=== PATIENT | male | born 1980 | race Caucasian/White ===

== ENCOUNTER 2019-04-28 01:52 | Outpatient (CLI) | payer BC, SELFPAY ==
--- NOTE | 2019-04-28 09:37 | DI.MRI_ITS ---
EXAM: MR THORACIC SPINE WO CLINICAL HISTORY: BACK PAIN WITH RADICULOPATHY, M54.16, UPPER BACK PAIN, M54.9. TECHNIQUE: Multiplanar multisequence MRI was performed. COMPARISON: No exams were available for comparison FINDINGS: There is normal signal in the spinal cord. No central spinal canal or neural foraminal stenosis is s een in the thoracic spine. There is a small central disc herniation at T12-L1. No nerve root compre ssion or central spinal canal stenosis results. There is normal marrow signal. No occult fracture i s appreciated. IMPRESSION: 1. Small central disc herniation at T12-L1. No central spinal canal or nerve root compression result s. 2. No central spinal canal or neural foraminal stenosis is seen in the thoracic spine.
== END 2019-04-28 02:12 ==
PROVIDERS: PCP Nurse Practitioner; Visit Provider Nurse Practitioner
DX: M54.16 Radiculopathy, lumbar region (principal); M54.6 Pain in thoracic spine; M51.25 Other intervertebral disc displacement, thoracolumbar region
CPT/HCPCS: 72146

== ENCOUNTER 2019-05-27 12:00 | Outpatient (CLI) | payer BC, SELFPAY ==
--- NOTE | 2019-05-27 06:00 | DI.RAD_ITS ---
EXAM: XR PAIN CLINIC THORACIC SP 2V CLINICAL HISTORY: Thoracic Epidural Steroid Injection. TECHNIQUE: Fluoroscopy was provided for the referring physician for guidance with performing injecti on procedure. COMPARISON: No exams were available for comparison FINDINGS: Please see procedure note for details. Fluoro Time: 44.3 seconds
[2019-05-27 12:06] VITALS: BP 121/79; PULSE 83; RESP 16; TEMP 36.5; O2SAT 96
[2019-05-27] MEDS: Omnipaque 240 MG/ML 50 ML BTL IJ (13:11)
[2019-05-27] MEDS: Dexamethasone Sod. Phos./Pres-Free 10 MG/ML VIAL IJ (13:14)
--- NOTE | 2019-05-27 13:18 | PDOC.PAIN_ITS ---
Pain Clinic Procedure Note Procedure Note Procedure Note: THORACIC INTERLAMINAR EPIDURAL STERIOID INJECTION PROCEDURE NOTE COMFORT ESQUIVEL has been referred to the [facility] for a lumbar epidural steroid injection by Melva Chi APRN. Pre-operative diagnosis: thoracic herniated disc Post-operative diagnosis: same as above The patient complains of UPPER BACK PAIN, MINIMAL RADIATION.. COMFORT was greeted by the nurse who verified patients name and . The patient was then taken to the fluoroscopy suite. COMFROT was interviewed and the medical record reviewed. There were no medical, pharmacologic, radiographic, or other structural contraindications to attempting fluoroscopically guided lumbar epidural steroid injection. Risks and potential side effects, as well as potential benefits of the procedure were reviewed with Mr Esquivel. He voiced concerns were addressed. After I was assured that informed consent was obtained, the patient consent form was signed. Standard time-out procedure was performed. patient reported a localized area of tenderness and pain over his upper back, which was marked and x-ray image taken, this correlated with T5-6 level. Ms Ariella's clinic visit note, there appears to be small disc herniation at T2-3. Given patient's maximal pain correlated with approximately T5-6, we discussed approaching the T3-4 level in hopes of epidural spread. COMFORT was placed in the prone position on the fluoroscopy table and automated blood pressure cuff and pulse oximeter applied. The skin entry point for entering/approaching the T3-4 epidural space for the lumbar epidural steroid injection was marked. Following thorough chlorhexadine preparation of the skin and draping and 1% lidocaine infiltration of the skin entry point and subcutaneous tissues, an 18 gauge Touhy needle was placed and advanced under fluoroscopic guidance and with loss of resistance technique into the T3-4 epidural space. Needle tip placement and depth were aided and confirmed by fluoroscopy. There was no paresthesia or return of blood or CSF through the needle. 2 cc's of Omnipaque 240 was injected (48 cc's was wasted) with clear epidural spread confirmed with fluoroscopy. 15 mg of preservative-free Dexamethasone (10 mg/cc) was injected (5 mg was wasted). This was followed by 1 cc of preservative-free normal saline to flush the steroid out of the needle. There was not any unusual discomfort expressed by KIRIT Kuhn (48 cc of Omnipaque and 5 mg of Dexamethasone was wasted) COMFORT's vital signs were stable throughout the procedure and were as recorded in nursing records. Follow up plans and appointments were discussed with COMFORT . The patient is set to follow up with Melva Krishnan APRN. Post procedure instruction was given as documented in nursing records and having met discharge criteria he was d ischarged from the [facility]. Comments: If this procedure is successful in helping with pain and improving his function, it can be completed a maximum of 3 times every 12 months. I personally performed this entire procedure. Daniel Tolliver MD ABPN-subspecialty board certification in Pain Medicine Attending Physician - Pain Management
[2019-05-27 13:22] VITALS: BP 125/77; PULSE 74; RESP 17; O2SAT 98
== END 2019-05-27 12:20 ==
PROVIDERS: PCP Nurse Practitioner; Visit Provider Internal Medicine
DX: M51.24 Other intervertebral disc displacement, thoracic region (principal)
CPT/HCPCS: 64490; 72070; Q9967

== ENCOUNTER 2020-04-08 11:24 | Outpatient (REF) | payer BC, SELFPAY ==
[2020-04-10 04:33] LABS: Patient Race White; SARS-CoV-2 RNA Undetected (Undetected); SARS-CoV-2 Specimen Source Nasal
== END 2020-04-08 11:44 ==
LOC: NCHCN 11:24
PROVIDERS: PCP Nurse Practitioner; Visit Provider Nurse Practitioner Family
DX: R05 Cough (principal)
CPT/HCPCS: U0003

== ENCOUNTER 2020-08-10 09:34 | Emergency (ER) | payer OTHER, SELFPAY ==
[2020-08-10 09:41] VITALS: BP 139/98; PULSE 89; TEMP 36.7; O2SAT 99
--- NOTE | 2020-08-10 10:00 | DI.CT_ITS ---
EXAM: CT THORACIC LUMBAR SPINE WO CLINICAL HISTORY: Fall, Hx of compression Fx, R/O acute fracture. TECHNIQUE: Imaging Protocol: Axial computed tomography images with coronal and sagittal reformatted images were created and reviewed. COMPARISON: CR CHEST 2 VIEWS PA,LAT from 09/24/2017 MR MR THORACIC SPINE WO from 04/28/2019 FINDINGS: Lumbar spine: There is a nondisplaced fracture of the right L1 transverse process. No other fracture s or subluxations are seen in the lumbar spine. Mild degenerative changes are seen in the lumbar spi ne. There is no spondylolysis or spondylolisthesis. The visualized sacroiliac joints are unremarkab le. The soft tissues are grossly unremarkable. Thoracic spine: No acute fracture or subluxation. Mild degenerative changes are seen in the thoracic spine. There is normal alignment. The visualized lungs are clear. IMPRESSION: 1. Nondisplaced fracture of the right L1 transverse process. 2. No acute fracture or subluxation in the thoracic spine. 3. Results of this exam have been verbally communicated with provider. RADIATION DOSE DELIVERED: Total DLP DATA REPOSITORY: All CT scans at this facility are submitted to the National Radiology Data Registry (NRDR) Dose Index Registry (DIR) with the [employer] (A[employer]). RADIATION OPTIMIZATION: All CT scans at this facility use at least one of these dose optimization te chniques: automated exposure control; mA and/or kV adjustment per patient size (includes targeted exa ms where dose is matched to clinical indication); or iterative reconstruction.
[2020-08-10 10:02] LABS: Bilirubin Negative (Negative); Blood Negative (Negative); Clarity Clear (Clear); Glucose Negative (Negative); Ketones Negative (Negative); Leukocyte Esterase Negative (Negative); Nitrite Negative (Negative); Urobilinogen 0.2 EU/dL (Up TO 0.2)
--- NOTE | 2020-08-10 12:02 | ED.GENADUL_ITS ---
Discharge Plan Disposition Patient Disposition: HOME Condition: Stable Discharge Details Clinical Impression: Fx lumbar vertebra-closed Primary Care Provider: Whitney Benites ED Provider: Loretta Britton Home Meds and New Rx's Prescriptions: No Action clindamycin phosphate 1 % Solution 1 applic TOPICAL DAILY PRNRF: 0 cyclobenzaprine 10 mg tablet 10 mg PO HS PRNRF: 0 acetaminophen [Tylenol Extra Strength] 500 mg Tablet 500 mg PO Q6H PRNRF: 0 Discharge Instructions Instructions: Transverse Process Fracture (ED) Additional Instructions: Follow up with primary care provider in 3-5 days. Return to ED sooner if any worsening or concerns. Increase oral fluids. Please take Tylenol or Ibuprofen with food every 4-6 hours as needed for pain and swelling. Take medications as directed. Alternate ice and heat, no significant bending. Return for any red flag symptoms such as loss of bowel or bladder control, inability to urinate or have a bowel movement, increasing numbness tingling in your lower extremities, weakness in your lower extremities or any concerns. Stand Alone Forms: Work Release Referrals: Whitney Benites [Primary Care Provider] - Discharge Data Discharge Date/Time-TO BE ENTERED AT DEPARTURE: 08/10/20 12:39 Medical Decision Making 40-year-old male presents to the ER with chief complaint of right paraspinous lumbar tenderness status post slip and fall which occurred last night. Slipped on stairs, landing onto his back. He is complaining of right paraspinous tenderness, no midline tenderness, crepitus or step-off palpated. He denies any loss of bowel or bladder control, he denies any numbness tingling in his lower extremities. He does report mild numbness extending just across his posterior lumbar area. He does have a past medical history of spine problems. He took a Flexeril last night and ibuprofen which did little to nothing to help with symptoms. EXAM: CT THORACIC LUMBAR SPINE WO CLINICAL HISTORY: Fall, Hx of compression Fx, R/O acute fracture. TECHNIQUE: Imaging Protocol: Axial computed tomography images with coronal and sagittal reformatted images were created and reviewed. COMPARISON: CR CHEST 2 VIEWS PA,LAT from 09/24/2017 MR MR THORACIC SPINE WO from 04/28/2019 FINDINGS: Lumbar spine: There is a nondisplaced fracture of the right L1 transverse process. No other fractures or subluxations are seen in the lumbar spine. Mild degenerative changes are seen in the lumbar spine. There is no spondylolysis or spondylolisthesis. The visualized sacroiliac joints are unremarkable. The soft tissues are grossly unremarkable. Thoracic spine: No acute fracture or subluxation. Mild degenerative changes are seen in the thoracic spine. There is normal alignment. The visualized lungs are clear. IMPRESSION: 1. Nondisplaced fracture of the right L1 transverse process. 2. No acute fracture or subluxation in the thoracic spine. 3. Results of this exam have been verbally communicated with provider. Urinalysis is within normal limits no leukocytosis or hematuria noted. Discussed results with patient he verbalized understanding. Discussed home care and strict return instructions. He has tried lidocaine patches in the past with little to no relief. We will attempt tramadol to go I discussed alternating ice and heat, I did discuss activities at home, and red flags to return for. Soren webb was ambulatory without difficulty here in department and upon discharge. HPI General Mode of arrival: ambulatory . Date/Time Provider Initiated Documentation: 08/10/20 09:46 . Limitations to Documentation: no limitations . Information obtained by: patient . HPI Narrative: 40-year-old male presents to the ER with chief complaint of right paraspinous lumbar tenderness status post slip and fall which occurred last night. Slipped on stairs, landing onto his back. He is complaining of right paraspinous tenderness, no midline tenderness, crepitus or step-off palpated. He denies any loss of bowel or bladder control, he denies any numbness tingling in his lower extremities. He does report mild numbness extending just across his posterior lumbar area. He does have a past medical history of spine problems. He took a Flexeril last night and ibuprofen which did little to nothing to help with symptoms. Related Data Home Medications Medication Instructions Recorded Confirmed clindamycin phosphate 1 applic TOPICAL DAILY PRN 05/07/19 08/10/20 acetaminophen [Tylenol Extra 500 mg PO Q6H PRN 08/10/20 08/10/20 Strength] cyclobenzaprine 10 mg PO HS PRN 08/10/20 08/10/20 Allergies Allergy/AdvReac Type Severity Reaction Status Date / Time penicillin V Allergy Severe Unverified 08/10/20 09:47 Penicillins Allergy Severe Hives Unverified 08/10/20 09:47 General Stated Complaint: Nk/Back Pain TRES: 3 Review of Systems Narrative: Constitutional: Negative for weight loss, alert and oriented, well groomed, normal body habitus, appears comfortable. HEENT: Denies trauma, headaches, blurry vision, nasal discharge, sore throat, trouble swallowing. Chest: Denies chest pain, palpitations, irregular rhythm, hypertension. Respiratory: Denies Shortness of breath, cough, hemoptysis. GI: Denies abdominal pain, nausea, vomiting, diarrhea, constipation. : Denies dysuria, hematuria, flank pain, rectal bleeding. Musculoskeletal: Complaining of lower lumbar spine tenderness, mild numbness extending across the back of his back. No loss of bowel or bladder control, no numbness tingling. Neuro: Denies dizziness, blurry vision, weakness, syncope, headache or facial numbness. Hematologic: Denies easy bruising, intolerance to heat or cold, hair loss. All systems reviewed & are unremarkable except as noted in HPI and below PFSH Medical History Acne Back pain with radiculopathy Depression Family history of thoracic aortic aneurysm Left knee pain Mitral regurgitation Nonsustained ventricular tachycardia Paresthesia Radiculopathy affecting upper extremity Tricuspid regurgitation Upper back pain Surgical History H/O arthroscopic knee surgery 2xleft, 1xright H/O wisdom tooth extraction Social History Smoking/Tobacco Use Status: Current every day Tobacco Type: smokeless tobacco Smokeless tobacco user: chewing tobacco Smoking risk assessment performed?: Yes Alcohol Intake: current Alcohol Intake frequency: 3 or more drinks per day Drug use: Never Substance use type: does not use Household members: spouse and children Housing: house Number of Children: 2 current occupation: law enforcement What is your relationship status?: Panel score (0-1 are the most socially isolated patients): 1 What type of physical activity do you participate in: none Do you feel safe at home: Yes Do you feel safe in your relationship?: Yes Exam Narrative Exam Narrative: Constitutional: Alert and oriented x3. Appears stated age. Normal body habitus. Head: Normocephalic, no trauma. Eyes: Pupils PERRLA, Red reflex noted, EOM's intact. Eyelids symmetrical without lesions, discharge, or swelling. ENT: Bilateral TM's WNL, External ear normal to inspection, no mastoid TTP, swelling, or erythema, Nasal turbinates WNL, no nasal discharge. Normal dentition, Posterior pharynx WNL, no exudate. Chest: RRR, Normal S1, S2, distal pulses intact. Resp: Lungs clear to auscultation bilaterally, no wheezes, rales, or rhonchi. Musculoskeletal: Normal gait, 5/5 strength to all four extremities. No midline tenderness with palpation, no crepitus no step-off noted to the L-spine, he does have some midline T-spine tenderness with palpation he states that it that is at his baseline. Does have some L midline L-spine tenderness and paraspinous tenderness with palpation. Sensation is equal bilateral lower extremities. Intact dorsiflexion and pedal flexion bilateral lower extremities. Skin: No suspicious rashes or lesions. Capillary refill less than 2 sec. Neurologic: Cranial nerves II-XII intact. Alert and oriented x 3. DTR's intact. Hematologic/Lymphatic: No ecchymosis, no lymphadenopathy. Course Vital Signs Vital signs: Vital Signs Temperature 36.7 C 08/10/20 09:41 Pulse 89 08/10/20 09:41 Blood Pressure 139/98 H 08/10/20 09:41 Pulse Oximetry 99 08/10/20 09:41 Temperature 36.7 C 08/10/20 09:41 Temperature Source Temporal Artery Scan 08/10/20 09:41 Pulse 89 08/10/20 09:41 Respiratory Effort Non-Labored 08/10/20 09:44 Blood Pressure 139/98 H 08/10/20 09:41 Blood Pressure Position Sitting 08/10/20 09:41 Pulse Oximetry 99 08/10/20 09:41 Oxygen Delivery Method Room Air 08/10/20 09:41 Oxygen Flow Rate 0 08/10/20 09:41 Pain Level 3 08/10/20 09:53 Lab/Test Results Lab/Test Results: Laboratory Tests Range/Units 08/10/20 09:59 Urine Color (Yellow) Yellow Urine Clarity (Clear) Clear Urine pH (5-8) 7.0 Ur Specific [place] (1.005-1.025) 1.020 Urine Protein (Negative) mg/dL Negative Urine Ketones (Negative) mg/dL Negative Urine Blood (Negative) Negative Urine Nitrite (Negative) Negative Urine Bilirubin (Negative) Negative Urine Urobilinogen (Up TO 0.2) EU/dL 0.2 Ur Leukocyte Esterase (Negative) Negative Urine Glucose (Negative) mg/dL Negative
--- NOTE | 2020-09-24 16:18 | W.ED.FU ---
Date of service: 09/24/20 Time of Service: 16:19 Follow Up Plan: Addendum noted to visit of August 10, 2020: Time of onset of symptoms and fall was 0700 am and not last night as previously stated.
== END 2020-08-10 12:39 | disposition home or self-care (01) ==
PROVIDERS: Emergency Provider Registered Nurse Emergency; PCP Nurse Practitioner
DX: S32.018A Other fracture of first lumbar vertebra, initial encounter for closed fracture (principal); W10.8XXA Fall (on) (from) other stairs and steps, initial encounter
CPT/HCPCS: 99284; 72128; 72131; 81003

== ENCOUNTER 2020-09-15 14:19 | Outpatient (CLI) | payer OTHER, BC, SELFPAY ==
--- NOTE | 2020-09-15 06:00 | DI.RAD_ITS ---
EXAM: XR PAIN CLINIC LUMBAR SP 2V CLINICAL HISTORY: Dx: Lumbar Spondylosis TECHNIQUE: 2D and realtime digital imaging was performed. CONTRAST MATERIAL: None. COMPARISON: No exams were available for comparison FINDINGS: Fluoroscopy was provided for Dr. AQUINO during the performance of pain management therapy. Images reveal placement of right-sided needles at L3 and L4 L5 levels. Please refer to the procedure report for c omplete details. Fluoro time: 25.5 seconds Cumulative dose: 4.5 sign rib mGy IMPRESSION:
[2020-09-15 14:56] VITALS: BP 138/94; PULSE 90; RESP 17; TEMP 37; O2SAT 97
--- NOTE | 2020-09-15 15:37 | PDOC.PAIN ---
Pain Clinic Procedure Note Procedure Note Procedure Note: Lumbar/Sacral Medial Branch Blocks COMFORT DUDLEY has been referred to the [facility] for lumbar/sacral medial branch blocks. pre-operative diagnosis: lumbar spondylosis Patient was interviewed and the medical record reviewed. There were no medical, pharmacologic, radiographic or other structural contraindications to attempting fluoroscopically guided local anesthetic lumbar/sacral medial branch blocks. Risks and expected side effects as well as potential benefit of the procedure were reviewed and voiced concerns addressed. The printed consent form was signed and witnessed. Standard time-out procedure was performed. Patient was placed in the prone position on the fluoroscopy table and automated blood pressure cuff and pulse oximeter applied. The skin entry points for approaching the anatomic target points of the segmental medial branches of right L3, L4, L5-DR were identified with anfluoroscopy and marked. Following thorough Chlorhexadine preparation of the skin and draping and 1% lidocaine infiltration of the skin entry points and subcutaneous tissues, a 25 gauge spinal needle was placed under fluoroscopic guidance down on to the target point for each respective segmental medial branch.Position was confirmed in A/P, oblique and lateral views with 0.25ml of omnipaque 240. Coult be this method .5ml 0.5% Bupivacaine was injected. Vital signs were stable throughout the procedure and were as recorded in the docflowsheet by the nursing staff. Follow up plans and appointments were discussed and was instructed to keep careful note of how the usual pain was modified by these injections. Specifically was asked to keep a pain diary for the next 24 hours using a numeric pain scale of 0-10 and report these results at the follow-up visit. Post procedure instruction was given as documented in the nursing documentation and having met discharge criteria. Patient was discharged from the [facility]. Based on the medial branches blocked today, if the patient has adequate relief and we are able to proceed to radiofrequency ablation, the treatment should result in the denervation of the right L4/5 and L5/S1 facets . We would expect to denervate a total of 2 facets during the radiofrequency ablation. COMMENTS: patient tolerated procedure well. I performed the entire procedure. Daniel Tolliver MD Pain Management CC: Whitney Benites
[2020-09-15 15:45] VITALS: BP 129/91; PULSE 92; RESP 18; O2SAT 100
[2020-09-15] MEDS: Bupivacaine 0.5% Pres-Free 10 ML VIAL IJ (15:50)
[2020-09-15] MEDS: Omnipaque 240 MG/ML 50 ML BTL IJ (15:50)
== END 2020-09-15 14:20 | disposition home or self-care (01) ==
LOC: PC 14:20
PROVIDERS: PCP Nurse Practitioner; Visit Provider Internal Medicine
DX: M47.816 Spondylosis without myelopathy or radiculopathy, lumbar region (principal)
CPT/HCPCS: 64493; 64494; 72100; Q9967

== ENCOUNTER 2020-11-23 08:29 | Outpatient (CLI) | payer OTHER, SELFPAY ==
[2020-11-23 08:34] VITALS: BP 133/90; PULSE 76; RESP 18; TEMP 36.5; O2SAT 98
--- NOTE | 2020-11-23 08:39 | PDOC.PAIN_ITS ---
Pain Clinic Procedure Note Procedure Note Procedure Note: Lumbar Epidural Steroid Injection Procedure Note Pre-operative diagnosis: thoracolumbar disc herniation Post-operative diagnosis: same as above COMMENTS: patient has a history of L1 transverse process fracture (11/07/2020) which has now healed. He has been evaluated by Ms Melva Krishnan APRN in clinic for a number of issues including axial back pain, failed to improve with diagnostic lumbar medial branch nerve block, previous history of upper thoracic pain which received good response from T3-4 TRES in the past. MRI L spine shows a small central disc herniation at T12-L1 without evidence of central canal or foraminal stenosis. patient is referred for a trial of T12-L1 TRES. COMFORT DUDLEY has been referred to the [facility] for lumbar epidural steroid injection. The patient was greeted by the nurse who verified patients name and . Patient was then taken to the fluoroscopy suite. The patient was interviewed and the medial record reviewed. There were no medical, pharmacologic, radiographic, or other structural contraindications to attempting fluoroscopically guided lumbar epidural steroid injection. Risks and expected side effects as well as potential benefits of the procedure were rev iewed and voiced concerns expressed. The patient consent form was signed and witnessed. Standard patient time-out procedure was performed. The patient was placed in the prone position on the fluoroscopy table and automated blood pressure cuff and pulse oximeter applied. The skin entry point for entering/approaching the epidural space by T12-L1 and marked. Following thorough chlorhexadine preparation of the skin and draping and 1% lidocaine infiltration of the skin entry point and subcutaneous tissues, a 18 gauge Touhy needle was placed under fluoroscopic guidance and with loss of resistance technique into the epidural space. Needle tip placement and depth were aided and confirmed by fluoroscopy. There was no paresthesia or return of blood or CSF t hrough the needle. 1 cc's of Omnipaque 240 was injected with clear epidural spread confirmed with fluoroscopy. 10mg Dexamethasone was injected. There was not any unusual discomfort expressed by COMFORT DUDLEY. Patient's vital signs were stable throughout the procedure and were as recorded in nursing records. Follow up plans and appointments were discussed with patient. Post procedure instruction was given as documented in nursing records and having met discharge criteria and was discharged from the [facility]. COMMENTS: If this procedure is helpful, it can be completed up to 3 times per 12 months. pre-procedure pain level is 3 out of 10 at rest, worse with prolonged sitting and bending, which pain increases to 6 out of 10, post procedure pain level is reported as 1/10. Daniel Tolliver MD Pain Management
[2020-11-23 09:12] VITALS: BP 143/93; PULSE 70; RESP 12; O2SAT 98
--- NOTE | 2020-11-23 09:16 | DI.RAD_ITS ---
Exam(s) XR PAIN CLINIC LUMBAR SP 2V EXAM: XR PAIN CLINIC LUMBAR SP 2V CLINICAL HISTORY: Dx: Lumbar Radiculopathy. TECHNIQUE: Fluoroscopy was provided for the referring physician for guidance with performing injecti on procedure. COMPARISON: No exams were available for comparison FINDINGS: Please see procedure note for details. RADIATION DOSE DELIVERED: gloria Lawson=7.37 mGy
[2020-11-23] MEDS: Dexamethasone Sod. Phos./Pres-Free 10 MG/ML VIAL IJ (09:25)
[2020-11-23] MEDS: Omnipaque 240 MG/ML 50 ML BTL IJ (09:26)
== END 2020-11-23 08:30 | disposition home or self-care (01) ==
LOC: PC 08:30
PROVIDERS: PCP Nurse Practitioner; Visit Provider Internal Medicine
DX: M51.25 Other intervertebral disc displacement, thoracolumbar region (principal)
CPT/HCPCS: 62323; 72100; Q9967

== ENCOUNTER 2021-03-08 11:35 | Outpatient (CLI) | payer BC, SELFPAY ==
--- NOTE | 2021-03-08 06:00 | DI.RAD_ITS ---
Exam(s) XR PAIN CLINIC LUMBAR SP 2V EXAM: XR PAIN CLINIC LUMBAR SP 2V CLINICAL HISTORY: Dx: Lumbar Radiculopathy. TECHNIQUE: Fluoroscopy was provided for the referring physician for guidance with performing injecti on procedure. COMPARISON: No exams were available for comparison FINDINGS: Please see procedure note for details. Fluoro time 19.2 seconds RADIATION DOSE DELIVERED: gloria Lawson=4.71 mGy
[2021-03-08 11:50] VITALS: BP 128/91; PULSE 81; RESP 18; TEMP 36.8; O2SAT 99
[2021-03-08 12:25] VITALS: BP 141/100; PULSE 76; RESP 12; O2SAT 94
--- NOTE | 2021-03-08 12:25 | PDOC.PAIN ---
Pain Clinic Procedure Note Procedure Note Procedure Note: Lumbar Epidural Steroid Injection Procedure Note Pre-operative diagnosis: thoracolumbar disc herniation Post-operative diagnosis: same as above Pre-procedure pain level: 3/10 Post-procedure pain level: 0/10 COMMENTS: patient reports 60% pain relief since last injection in 10/2020. Patient is able to tolerate increased physical activity without too much pain flare up. COMFORT DUDLEY has been referred to the [facility] for lumbar epidural steroid injection. The patient was greeted by the nurse who verified patients name and . Patient was then taken to the fluoroscopy suite. The patient was interviewed and the medial record reviewed. There were no medical, pharmacologic, radiographic, or other structural contraindications to attempting fluoroscopically guided lumbar epidural steroid injection. Risks and expected side effects as well as potential benefits of the procedure were reviewed and voiced concerns expressed. The patient consent form was signed and witnessed. Standard patient time-out procedure was performed. The patient was placed in the prone position on the fluoroscopy table and automated blood pressure cuff and pulse oximeter applied. The skin entry point for entering/approaching the epidural space by T12-L1 and marked. Following thorough chlorhexadine preparation of the skin and draping and 1% lidocaine infiltration of the skin entry point and subcutaneous tissues, a 18 gauge Touhy needle was placed under fluoroscopic guidance and with loss of resistance technique into the epidural space. Needle tip placement and depth were aided and confirmed by fluoroscopy. There was no paresthesia or return of blood or CSF through the needle. 1 cc's of Omnipaque 240 was injected with clear epidural spread confirmed with fluoroscopy. 10mg Dexamethasone was injected. There was not any unusual discomfort expressed by COMFORT DUDLEY. Patient's vital signs were stable throughout the procedure and were as recorded in nursing records. Follow up plans and appointments were discussed with patient. Post procedure instruction was given as documented in nursing records and having met discharge criteria and was discharged from the [facility]. COMMENTS: patient tolerated procedure well without issue. Daniel Tolliver MD Pain Management
[2021-03-08] MEDS: Omnipaque 240 MG/ML 50 ML BTL IJ (12:26)
[2021-03-08] MEDS: Dexamethasone Sod. Phos./Pres-Free 10 MG/ML VIAL (12:26)
== END 2021-03-08 11:36 | disposition home or self-care (01) ==
LOC: PC 11:36
PROVIDERS: PCP Nurse Practitioner; Visit Provider Internal Medicine
DX: M51.25 Other intervertebral disc displacement, thoracolumbar region (principal)
CPT/HCPCS: 62321; 72100; Q9967

== ENCOUNTER 2021-10-19 17:53 | Emergency (ER) | payer BC, SELFPAY ==
[2021-10-19 18:09] VITALS: BP 131/87; PULSE 89; RESP 16; TEMP 37.1; O2SAT 97
--- NOTE | 2021-10-19 18:15 | DI.RAD_ITS ---
Exam(s) XR HAND LT COMPLETE EXAM: XR HAND LT COMPLETE CLINICAL HISTORY: lac over dorsal 2nd MCP, r/o fx/fb. TECHNIQUE: 2D digital imaging was performed. COMPARISON: No exams were available for comparison FINDINGS: 3 views There is no evidence of fracture or dislocation. Benign bone cysts are incidentally noted in the hea d of the 3rd metacarpal. There is persistent flexion of the 2nd-index finger noted. This may be positional or possibly relate d to extensor tendon injury. There is no radiopaque foreign body IMPRESSION: No fractures. Other findings as above. DATA REPOSITORY: RADIATION DOSE DELIVERED:
--- NOTE | 2021-10-19 18:17 | ED.GENADUL_ITS ---
Discharge Plan Disposition Patient Disposition: HOME Condition: Improving Discharge Details Clinical Impression: Finger laceration Primary Care Provider: Whitney Benites ED Provider: Yanet Montoya Home Meds and New Rx's Prescriptions: New doxycycline hyclate 100 mg tablet 100 mg PO BID 5 Days Qty: 10 0RF Continued clindamycin phosphate 1 % Solution 1 applic TOPICAL DAILY PRN0RF ibuprofen 200 mg capsule 600 mg PO DAILY PRN0RF (DME) back brace Misc See Rx Instructions .ROUTE .MEDSUPPLY Qty: 1 0RF Rx Instructions: As directed acetaminophen [Tylenol Extra Strength] 500 mg Tablet 500 mg PO Q6H PRN0RF Discharge Instructions Instructions: Finger Laceration (ED) Additional Instructions: Keep wound clean and dry. Cover wound with bandage if risk of contamination. Otherwise you can keep the wound open to air if resting at home to allow edges to dry and heal. Alternate tylenol and motrin as needed and directed for pain. A prescription for antibiotics has been sent electronically to your pharmacy. Take this as directed until finished. Return to the emergency department in 7 to 10 days for suture removal. Return immediately to the emergency department if you develop any worsening or new concerning symptoms such as fever, increased pain, redness or swelling. Discharge Data Discharge Date/Time-TO BE ENTERED AT DEPARTURE: 10/19/21 20:08 Discharge Physician: Yanet Montoya Medical Decision Making 41-year-old male presents with left second finger laceration sustained when throwing a toilet in a dumpster prior to arrival. 2 cm linear laceration located on dorsal surface of base of left second finger. Bleeding controlled. No obvious foreign body or bony deformity. Neurovascularly intact and no evidence of tendon injury. Patient referred for x-ray which was negative for acute findings. 4 nylon 5-0 sutures placed. Patient was given a dose of doxycycline here and a prescription sent electronically to his pharmacy. An aluminum finger splint was placed due to location of laceration to minimize movement. Pt was advised to return to the ED in 7 to 10 days for suture removal. Patient also placed on orthopedic follow-up list for reevaluation to ensure there is no tendon injury evident at a later time. Usual and customary return precautions given prior to discharge. Medical Records Medical records reviewed: Yes I reviewed the patient's medical records. Imaging Data Radiologic Study: Radiologist's impression: XR Left Hand Exam date and time: 10/19/2021 6:37 PM Age: 41 years old Clinical indication: Injury or trauma; Other: Laceration; Hand; Left; Injury date: 10/19/21; Injury details: Laeration; Additional info: Laceration 2nd mcp TECHNIQUE: Imaging protocol: XR Left hand. Views: 3 or more views. Total images: 3 COMPARISON: No relevant prior studies available. FINDINGS: Bones/joints: No fractures. Minor subcortical cystic changes in the 3rd metacarpal head, nonspecific. Persistent flexion of the index finger on all 3 images may be positional in nature although correlate clinically to exclude extensor tendon injury. Soft tissues: Bandaging projects over the dorsal base of the index finger consistent with the region of laceration. No radiopaque foreign bodies are identified. Other findings: Carpal relationships are normal. IMPRESSION: 1. No fracture or foreign body. 2. Persistent flexion of the index finger may be positional, although correlate clinically for extensor tendon injury. HPI General Mode of arrival: ambulatory . Date/Time Provider Initiated Documentation: 10/19/21 18:16 . Limitations to Documentation: no limitations . Information obtained by: patient . HPI Narrative: Pt is a 41yo M who presents to the ED with a complaint of left second finger laceration sustained when throwing a toilet in a dumpster 1 hour prior to arrival. Patient states the toilet fell backward striking him on his finger. Tetanus up-to-date 2017. He denies any other injuries. Related Data Home Medications Medication Instructions Recorded Confirmed clindamycin phosphate 1 % topical 1 applic TOPICAL DAILY PRN 05/07/19 10/19/21 solution acetaminophen 500 mg tablet 500 mg PO Q6H PRN 08/10/20 10/19/21 (Tylenol Extra Strength) back brace #1 ea 08/30/20 03/08/21 ibuprofen 200 mg capsule 600 mg PO DAILY PRN cap 09/07/20 10/19/21 doxycycline hyclate 100 mg tablet 100 mg PO BID 5 Days #10 tab 10/19/21 Previous Rx's Medication Instructions Recorded back brace #1 ea 08/30/20 doxycycline hyclate 100 mg tablet 100 mg PO BID 5 Days #10 tab 10/19/21 Allergies Allergy/AdvReac Type Severity Reaction Status Date / Time penicillin V Allergy Severe Unverified 10/19/21 18:12 Penicillins Allergy Severe Hives Unverified 10/19/21 18:12 General Stated Complaint: Laceration TRES: 4 Review of Systems All systems reviewed & are unremarkable except as noted in HPI and below Constitutional Constitutional: Reports as per HPI, Denies chills and Denies fever(s) Eyes Eyes: Denies blurry vision ENT Ears, Nose, Mouth, and Throat: Denies dizziness, Denies sore throat and Denies throat swelling Cardiovascular Cardiovascular: Denies chest pain and Denies dyspnea Respiratory Respiratory: Denies cough and Denies dyspnea Gastrointestinal Gastrointestinal: Denies abdominal pain, Denies diarrhea and Denies vomiting Genitourinary Genitourinary: Denies hematuria and Denies dysuria Musculoskeletal Musculoskeletal: Denies back pain and Denies numbness Integumentary/Breasts Skin/Breast: Denies lesions and Denies rash Neurologic Neurologic: Denies dizziness, Denies localized weakness and Denies numbness Allergic/Immunologic Allergic/Immunologic: Denies throat swelling PFSH All Active Problems (Updated 10/19/21 @ 19:49 by Yanet Montoya DO) Finger laceration (Acute) Fx lumbar vertebra-closed (Acute) Medical History Acne Back pain with radiculopathy Depression Family history of thoracic aortic aneurysm Fx lumbar vertebra-closed Left knee pain Mitral regurgitation Nonsustained ventricular tachycardia Paresthesia Radiculopathy affecting upper extremity Tricuspid regurgitation Upper back pain Surgical History H/O arthroscopic knee surgery 2xleft, 1xright H/O wisdom tooth extraction Social History Smoking/Tobacco Use Status: Current every day Tobacco Type: smokeless tobacco Smokeless tobacco user: chewing tobacco Smoking risk assessment performed?: Yes Alcohol Intake: current Alcohol Intake frequency: a few times a week Alcohol type: beer Drug use: Never Substance use type: does not use Household members: spouse and children Housing: house Number of Children: 2 current occupation: law enforcement What is your relationship status?: Panel score (0-1 are the most socially isolated patients): 1 What type of physical activity do you participate in: none Seatbelt use: always Do you feel safe at home: Yes Do you feel safe in your relationship?: Yes Exam Const General: cooperative, healthy appearing and no acute distress Orientation: alert, awake and oriented x3 HENMT Head: normal to inspection Mouth: oral mucosae normal Eyes General: appearance normal, both eyes and all related structures Neck Neck: normal visual inspection Resp Effort & Inspection: normal respiratory effort and able to speak in complete sentences Cardio Rate: regular rate Skin General skin exam: no rashes or lesions noted Neuro General: patient alert, patient awake and patient oriented x3 Motor: muscle tone normal throughout Extrem Hand/finger images: 1. 2 cm linear laceration overlying dorsal aspect of base of second finger near MCP joint. Laceration extends through the dermis. There is no obvious foreign body. He has no obvious tendon injury and motor/sensory grossly intact. Psych Appearance: grossly normal Affect: normal affect Course Vital Signs Vital signs: Vital Signs Temperature 98.8 F 10/19/21 18:09 Pulse 89 10/19/21 18:09 Respiratory Rate 16 10/19/21 18:09 Blood Pressure 131/87 10/19/21 18:09 Pulse Oximetry 97 10/19/21 18:09 Temperature 98.8 F 10/19/21 18:09 Temperature Source Skin 10/19/21 18:09 Pulse 89 10/19/21 18:09 Respiratory Rate 16 10/19/21 18:09 Respiratory Effort 10/19/21 18:09 Blood Pressure 131/87 10/19/21 18:09 Blood Pressure Position Sitting 10/19/21 18:09 Pulse Oximetry 97 10/19/21 18:09 Oxygen Delivery Method Room Air 10/19/21 18:09 Oxygen Flow Rate 0 10/19/21 18:09 Pain Level 3 10/19/21 18:09 Procedures Laceration Laceration 1: Site: hand (2nd finger) Side (If applicable): left Size (cm): 2 Description: linear Depth: simple, single layer Local Anesthetic: Lidocaine 1% Amount of anesthesia used (mL): 6 Pre-repair: wound explored, irrigated extensively and deep structures intact Skin layer closed with: nylon Size (cm): 5-0 Number of sutures: 4 Technique: simple, interrupted
[2021-10-19] MEDS: Lidocaine 1% Multi-Dose 50 ML VIAL (18:49)
[2021-10-19] MEDS: Acetaminophen 325 MG TAB (18:59)
--- NOTE | 2021-10-19 19:03 | DI.VRAD_ITS ---
PROCEDURE INFORMATION: Exam: XR Left Hand Exam date and time: 10/19/2021 6:37 PM Age: 41 years old Clinical indication: Injury or trauma; Other: Laceration; Hand; Left; Injury date: 10/19/21; Injury details: Laeration; Additional info: Laceration 2nd mcp TECHNIQUE: Imaging protocol: XR Left hand. Views: 3 or more views. Total images: 3 COMPARISON: No relevant prior studies available. FINDINGS: Bones/joints: No fractures. Minor subcortical cystic changes in the 3rd metacarpal head, nonspecific. Persistent flexion of the index finger on all 3 images may be positional in nature although correlate clinically to exclude extensor tendon injury. Soft tissues: Bandaging projects over the dorsal base of the index finger consistent with the region of laceration. No radiopaque foreign bodies are identified. Other findings: Carpal relationships are normal. IMPRESSION: 1. No fracture or foreign body. 2. Persistent flexion of the index finger may be positional, although correlate clinically for extensor tendon injury. Dictated and Authenticated by: Rajinder Covington MD. Ordering:TIM Holt MD
[2021-10-19 20:08] VITALS: BP 131/87; PULSE 89; RESP 16; TEMP 37.1; O2SAT 97
[2021-10-19] MEDS: Doxycycline Hyclate 100 MG CAP PO (20:08)
[2021-10-19] MEDS: Doxycycline Hyclate 100 MG, 2 CAPS/BTL PO (20:08)
== END 2021-10-19 20:08 | disposition home or self-care (01) ==
PROVIDERS: Emergency Provider Physician Assistant; PCP Nurse Practitioner Family
DX: S61.211A Laceration without foreign body of left index finger without damage to nail, initial encounter (principal); W26.8XXA Contact with other sharp object(s), not elsewhere classified, initial encounter
CPT/HCPCS: 12001; 99283; 73130

== ENCOUNTER 2022-06-10 22:03 | Inpatient (IN) | payer BC, SELFPAY ==
[2022-06-10] VITALS (19 sets, daily range): BP systolic 97–124; BP diastolic 63–90; PULSE 48–147; RESP 13–34
--- NOTE | 2022-06-10 22:00 | RT.EKG_ITS ---
APPROVED REPORT Exam: Resting ECG Reason for Exam: chest pain Patient Location: E HR:160 bpm ECG Measurements Heart Rate 160 AXIS W[place] [id number] P [id number] QRSd 93 QRS -31 QT 285 T 46 QTc 465 Conclusion Atrial fibrillation...V-rate 107-211, irreg A-activity Left axis deviation...QRS axis (-30,-90) Physician: veronica york
[2022-06-10] MEDS: Metoprolol 5 MG/5 ML VIAL IVP ×2 (22:39→22:43)
[2022-06-10] MEDS: Normal Saline 1,000 ML 1000 ML IV (22:50)
[2022-06-10 22:53] LABS: Abs Immature Grans 0.02 10^3/uL (0.0-0.06); Absolute Basophil Count 0.07 10^3/uL (0.0-0.2); Absolute Eosinophil Count 0.27 10^3/uL (0.0-0.7); Absolute Lymphocyte Count 4.01 10^3/uL (1.2-3.4); Absolute Monocyte Count 0.99 10^3/uL (0.1-0.8); Absolute Neutrophil Count 4.34 10^3/uL (1.2-6.7); Basophils % 0.7; Eosinophils % 2.8; HCT 51.9 % (40.0-50.0); HGB 17.3 g/dL (13.5-17.5); Immature Grans % 0.2; Lymphocytes % 41.3; MCH 30.9 pg (27.0-33.0); MCHC 33.3 % (32.0-36.0); MCV 93 fL (80-95); MPV 9.2 fL (8.0-11.0); Monocytes % 10.2; Neutrophils % 44.8; Platelet Count 318 10^3/uL (130-400); RBC 5.59 10^6/uL (4.36-5.78); RDW 11.9 % (11.8-14.1); RDW-SD 41.1 fL
[2022-06-10] MEDS: Metoprolol 5 MG/5 ML VIAL 2.5 MG IVP ×2 (22:53→23:21)
[2022-06-10 23:06] LABS: INR 0.9 (0.9-1.1); PTT Activated 23.6 sec (21.0-27.5); Prothrombin Time 9.3 sec (9.3-11.0)
[2022-06-10 23:17] LABS: ALT 34 U/L (16-63); AST 27 U/L (15-37); Albumin 4.8 g/dL (3.4-5.0); Alkaline Phosphatase 111 U/L (46-116); Anion Gap 7.4 mmol/L (3-11); BUN 15 mg/dL (7-18); Bilirubin, Total 0.4 mg/dL (0.2-1.0); CO2 32.6 mmol/L (21.0-32.0); CREATININE 1.1 mg/dL (0.70-1.30); Calcium 9.4 mg/dL (8.5-10.1); Chloride 100 mmol/L (98-107); Estimated GFR 84.89 (mL/min/1.73m2); Glucose 104 mg/dL (74-106); NT-proBNP 30 pg/mL (<300); Potassium 3.7 mmol/L (3.5-5.1); Sodium 140 mmol/L (136-145); TSH (W/Ref FT4) 3.36 uIU/mL (0.36-3.74); Total Protein 8.5 g/dL (6.4-8.2); Troponin I < 50 ng/L (<or=60)
[2022-06-10 23:18] LABS: ETHANOL BLOOD < 3.0 mg/dL (<10)
--- NOTE | 2022-06-10 23:28 | W.ED.GENAD ---
Discharge Plan Discharge Details Chief Complaint: Palpitatns Primary Care Provider: KUSHAL LUNDBERG ED Provider: Feliz Tiwari Medical Decision Making 42-year-old male with a past medical history of previous elevated heart rate that led to no formal diagnosis who presents today for evaluation of an elevated heart rate. Patient states that at 9:20 PM he was sitting and relaxing when suddenly he felt his heart beating in a funny way. He checked his heart rate on his phone and it said that it was greater than 140. He came to the ER for further evaluation. He denies any chest pain, shortness of breath, vomiting, diarrhea, numbness, tingling, weakness, or syncope. No recent long trips, surgeries or procedures. Early this afternoon he had 3 beers which is very normal for him. He states that in the distant past he may have been on metoprolol before but this was stopped because he did not have any other further need for it after review with cardiology in the past. Currently the patient has no other complaints at this time. No other modifying factors. He denies any IV or illicit drug use, cocaine use, new medications, excessive caffeine use, or other changes in diet or lifestyle. Physical exam demonstrates a well-appearing male, no abnormal physical exam findings aside for the elevated heart rate. EKG shows atrial fibrillation with a rate in the 160s to 170s. No depressions or elevations. Electric cardioversion was offered to the patient however he declined. We will treat with metoprolol, rehydrate, monitor closely and reassess. 11:37 PM Patient was given 5 mg of metoprolol x3, but unfortunately had no improvement in his heart rate. Blood pressure did go down to the 90s to low 100s. I am hesitant about giving Cardizem boluses at this stage, so we will start a Cardizem drip starting at 5 and then titrating up as needed. We will monitor closely with admission. 12:16 AM The patient's laboratory work-up is unremarkable, unfortunately heart rate remains as it is. Cardizem drip has been started. Discussed the case with hospitalist Dr. Otoole, he agrees with the assessment and plan. I have extensively reviewed the treatment plan with the patient. I have addressed all patient concerns at this time. I have also discussed the plan with the admitting physician and they agree with the current assessment and plan and have agreed to assume responsibility for the patient. All parties demonstrate verbal understanding and agreement with our assessment and plan at this time. The documentation in this chart was dictated using [employer] dictation software. Please excuse any dictation errors. Patient's Juan vas 2 score is 0. He already did take aspirin at home. We do recommend adding an additional 325 mg tomorrow morning. Sign Out No HPI General Date/Time Provider Initiated Documentation: 06/10/22 22:14. HPI Narrative: 42-year-old male with a past medical history of previous elevated heart rate that led to no formal diagnosis who presents today for evaluation of an elevated heart rate. Patient states that at 9:20 PM he was sitting and relaxing when suddenly he felt his heart beating in a funny way. He checked his heart rate on his phone and it said that it was greater than 140. He came to the ER for further evaluation. He denies any chest pain, shortness of breath, vomiting, diarrhea, numbness, tingling, weakness, or syncope. No recent long trips, surgeries or procedures. Early this afternoon he had 3 beers which is very normal for him. He states that in the distant past he may have been on metoprolol before but this was stopped because he did not have any other further need for it after review with cardiology in the past. Currently the patient has no other complaints at this time. No other modifying factors. He denies any IV or illicit drug use, cocaine use, new medications, excessive caffeine use, or other changes in diet or lifestyle. Related Data Allergies Allergy/AdvReac Type Severity Reaction Status Date / Time penicillin V Allergy Severe Unverified 10/26/21 09:02 Penicillins Allergy Severe Hives Unverified 06/10/22 23:13 General Stated Complaint: Palpitatns TRES: 3 Review of Systems All systems reviewed & are unremarkable except as noted in HPI and below PFSH All Active Problems Fx lumbar vertebra-closed (Acute) Medical History Acne Back pain with radiculopathy Depression Family history of thoracic aortic aneurysm Fx lumbar vertebra-closed Left knee pain Mitral regurgitation Nonsustained ventricular tachycardia Paresthesia Radiculopathy affecting upper extremity Tricuspid regurgitation Upper back pain Surgical History H/O arthroscopic knee surgery 2xleft, 1xright H/O wisdom tooth extraction Social History Smoking/Tobacco Use Status: Current every day Tobacco Type: smokeless tobacco Smokeless tobacco user: chewing tobacco Smoking risk assessment performed?: Yes Alcohol Intake: current Alcohol Intake frequency: a few times a week Alcohol type: beer Drug use: Never Substance use type: does not use Household members: spouse and children Housing: house Number of Children: 2 current occupation: law enforcement Current gender identity: male What is your relationship status?: Panel score (0-1 are the most socially isolated patients): 1 What type of physical activity do you participate in: none Seatbelt use: always Do you feel safe at home: Yes Do you feel safe in your relationship?: Yes Exam Narrative Exam Narrative: 1.Const: Well-nourished, Well-developed, appearing stated age 2.Eyes: PERRL, no conjunctival injection, and symmetrical lids. 3.ENT: Atraumatic external nose and ears. Moist MM. Neck: Symmetric, trachea midline, No thyromegaly. 4.CVS: +S1/S2, No murmurs or gallops. Peripheral pulses 2+ and equal in all extremities. Brisk capillary refill in all extremities. 5.RESP: Unlabored respiratory effort. Clear to auscultation bilaterally. No wheezes rales or rhonchi 6.GI: Soft, Nontender/Nondistended, No hepatosplenomegaly. No guarding or rebound. 7.MSK: Normocephalic/Atraumatic, Extremities w/o deformity or ttp No cyanosis or clubbing, Normal movement of all extremities 8.Skin: Warm, Dry. No rashes or lesions. 9.Neuro: intermission coordinator II-XII grossly intact. Sensation grossly intact, no focal neurologic deficits. 10.Psych: (AAO) x3. Appropriate mood and affect Course Vital Signs Vital signs: Vital Signs Pulse 120 H 06/10/22 22:39 Blood Pressure 124/63 06/10/22 22:39 Pulse 140 H 06/10/22 23:21 Respiratory Effort 06/10/22 22:26 Blood Pressure 117/81 06/10/22 23:21 Pain Level 0 06/10/22 22:05 Lab/Test Results Lab/Test Results: Laboratory Tests Range/Units 06/10/22 06/10/22 06/10/22 22:20 22:20 22:20 WBC (4.4-10.8) 10^3/uL 9.70 RBC (4.36-5.78) 10^6/uL 5.59 Hgb (13.5-17.5) g/dL 17.3 Hct (40.0-50.0) % 51.9 H MCV (80-95) fL 93 MCH (27.0-33.0) pg 30.9 MCHC (32.0-36.0) % 33.3 RDW (11.8-14.1) % 11.9 Plt Count (130-400) 10^3/uL 318 MPV (8.0-11.0) fL 9.2 Immature Gran % 0.2 Neutrophils % 44.8 Lymphocytes % 41.3 Monocytes % 10.2 Eosinophils % 2.8 Basophils % 0.7 Nucleated RBC % (0.0-0.3) % 0.0 Absolute Neutrophils (1.2-6.7) 10^3/uL 4.34 Absolute Lymphocytes (1.2-3.4) 10^3/uL 4.01 H Absolute Monocytes (0.1-0.8) 10^3/uL 0.99 H Absolute Eosinophils (0.0-0.7) 10^3/uL 0.27 Absolute Basophils (0.0-0.2) 10^3/uL 0.07 PT (9.3-11.0) sec 9.3 INR (0.9-1.1) 0.9 APTT (21.0-27.5) sec 23.6 Sodium (136-145) mmol/L 140 Potassium (3.5-5.1) mmol/L 3.7 Chloride (98-107) mmol/L 100 Carbon Dioxide (21.0-32.0) mmol/L 32.6 H Anion Gap (3-11) mmol/L 7.4 BUN (7-18) mg/dL 15 Creatinine (0.70-1.30) mg/dL 1.1 Est GFR (CKD-EPI 2020) (mL/min/1.73m2) 84.89 Glucose (74-106) mg/dL 104 Calcium (8.5-10.1) mg/dL 9.4 Total Bilirubin (0.2-1.0) mg/dL 0.4 AST (15-37) U/L 27 ALT (16-63) U/L 34 Alkaline Phosphatase (46-116) U/L 111 Troponin I (<or=60) ng/L < 50 NT-Pro-B Natriuret Pep (<300) pg/mL 30 Total Protein (6.4-8.2) g/dL 8.5 H Albumin (3.4-5.0) g/dL 4.8 TSH (0.36-3.74) uIU/mL 3.36 Ethyl Alcohol (<10) mg/dL < 3.0 Critical Care Time Critical Care Time Critical Care Time: Yes Total Critical Care Time: 45 Attestation: Upon my evaluation, this patient had a high probability of imminent or life-threatening deterioration, which required my direct attention, intervention, and personal management. I have personally provided 45 minutes of critical care time exclusive of time spent on separately billable procedures. Time includes review of laboratory data, radiology results, discussion with consultants, and monitoring for potential decompensation. Interventions were performed as documented.
[2022-06-11] VITALS (121 sets, daily range): BP systolic 91–153; BP diastolic 58–119; PULSE 52–162; RESP 8–34; TEMP 36.2–37.1; O2SAT 91–97
[2022-06-11] MEDS: dilTIAZem 125 MG in Normal Saline 100 ML IV (00:02)
[2022-06-11 02:43] LABS: Troponin I < 50 ng/L (<or=60)
--- NOTE | 2022-06-11 05:51 | W.PM.HP.N ---
Date of service: 06/11/22 Time of Service: 03:00 Assessment and Plan Assessment and plan (1) Atrial fibrillation with rapid ventricular response: Start date: 06/10/22 Status: Acute Assessment and plan: This is a 42-year-old gentleman who presents with new onset atrial fibrillation with a previous history of nonsustained ventricular tachycardia and essentially normal echocardiogram in 2018. He was not cardioverted and started on IV diltiazem after failure with iv metoprolol with early heart rate control and slightly low blood pressure but no symptoms. He did not respond to IV metoprolol. He will continue on IV diltiazem trending lab with magnesium to be checked and repleted if needed. His TSH is high normal and could be followed up. He is asymptomatic. Echocardiogram should be updated. He will be converted to oral diltiazem if diltiazem infusion is successful in controlling his rate. He still could be offered cardioversion. Long-term anticoagulation should be considered if risk is assessed with patient to see cardiology. History of Present Illness History of Present Illness Chief Complaint: Palpitations with rapid heart rate Narrative: This is a 42-year-old male patient presents to the ED with palpitations and rapid heart rate detected on his wrist watch monitor which stated that he had atrial fibrillation. He had a similar episode in 2018 but at that time did not have a watch to detect his rhythm and he presented for evaluation with an echocardiogram revealing minimal valvular disease, normal left ventricular ejection fraction and normal size atria. He does drink alcohol daily most in the form of beer and does not exercise routinely. There is no family history of heart disease or atrial fibrillation. He denies any shortness of breath, chest pain or neurological symptoms. With the patient's previous episode which by his past medical history appears to have been diagnosed as nonsustained ventricular tachycardia and not atrial fibrillation in 2018, he was on metoprolol but never continued this medication. The ED physician stated that he did offer the patient cardioversion which she declined and the patient's CHADS2 score was low not prompting anticoagulation at this time though the patient will be placed on subcutaneous Lovenox while hospitalized. He did receive IV metoprolol in the ED for heart rate up in the range of 160 and had a brief response but not sustained. He was started on diltiazem drip. After bolus and initiation his heart rate was improving slowly and he did have slightly low blood pressure but no symptoms. He was admitted for continued IV diltiazem infusion and will need a updated echocardiogram. His initial EKG and labs were negative for ischemia. Patient was not having any significant symptoms. Review of Systems Narrative: 13 point review of systems otherwise unrevealing or stable. PFSH All Active Problems (Updated 06/11/22 @ 06:10 by Benitez Estevez) Atrial fibrillation with rapid ventricular response (Acute) Medical History (Updated 06/11/22 @ 06:10 by Benitez Estevez) Acne Back pain with radiculopathy Depression Family history of thoracic aortic aneurysm Fx lumbar vertebra-closed Fx lumbar vertebra-closed Left knee pain Migraine (12/18/12) Mitral regurgitation Nonsustained ventricular tachycardia Paresthesia Radiculopathy affecting upper extremity Tricuspid regurgitation Upper back pain Surgical History H/O arthroscopic knee surgery 2xleft, 1xright H/O wisdom tooth extraction Social History Smoking/Tobacco Use Status: Current every day Tobacco Type: smokeless tobacco Smokeless tobacco user: chewing tobacco Smoking risk assessment performed?: Yes Alcohol Intake: current Alcohol Intake frequency: a few times a week Alcohol type: beer Drug use: Never Substance use type: does not use Household members: spouse and children Housing: house Number of Children: 2 current occupation: law enforcement Current gender identity: male What is your relationship status?: Panel score (0-1 are the most socially isolated patients): 1 What type of physical activity do you participate in: none Seatbelt use: always Do you feel safe at home: Yes Do you feel safe in your relationship?: Yes Meds Allergies and Home Medications Allergies Allergy/AdvReac Type Severity Reaction Status Date / Time penicillin V Allergy Severe Unverified 10/26/21 09:02 Penicillins Allergy Severe Hives Unverified 06/10/22 23:13 Home Medications Medication Instructions Recorded Confirmed Type Unknown [No Known Home Meds] 06/11/22 06/11/22 History Exam Narrative Exam Narrative: General: Patient appears appropriate for age, alert and oriented x3 and in no acute distress. He is mesomorphic with only slight obesity over his abdomen. Otherwise normal build. HEENT: Normocephalic, heavy fan with longer hair, eyes with pupils equal and react to light symmetrically, extraocular movement intact and sclera anicteric. Oropharynx with moist mucosa and normal dentition. Neck: Supple without JVD. Back: Normal posture without CVA tenderness. Lungs: Clear to auscultation percussion. Heart: Irregularly irregular rhythm with intermittently tachycardic rate. No auscultated murmurs or gallops. Abdomen: Slightly obese contour, soft and nontender to palpation with no palpable hepatosplenomegaly. Genitalia/rectal: Exam deferred. Extremity: Without clubbing, cyanosis or pitting edema. Peripheral pulses intact. All joints have fair range of motion. Skin: Normal color, warm and dry. Neuro: Cranial nerves II through XII gross intact, no focalizing motor deficits or tremors. Psych: Normal affect and mood. No abnormal thought processes. Remote and recent memory intact. Results Imaging Imaging Studies: Exam(s) [id number] US:Echocardiogram Heart *[facility]* *[facility]* [address] [place] [address] ? Date of study: 10/15/2017 ? Transthoracic Echocardiography M-mode, complete 2D, complete spectral Doppler, and color Doppler *STUDY CONCLUSIONS* Summary: 1. Left ventricle: The cavity size was normal. Systolic function was ?? normal. The estimated ejection fraction was 60-65%. Diastolic ?? parameters were normal. There was no evidence of elevated ventricular ?? filling pressure by Doppler parameters. 2. Mitral valve: There was mild regurgitation. 3. Right ventricle: The cavity size was normal. Wall thickness was ?? normal. Systolic function was normal. 4. Atrial septum: No defect or patent foramen ovale was identified. 5. Tricuspid valve: There was moderate regurgitation. 6. Pulmonary arteries: Pulmonary systolic pressure was in the range of ?? 15mm Hg to 25mm Hg. 7. Inferior vena cava: The vessel was patent and normal in size. The ?? respirophasic diameter changes were in the normal range (greater than ?? or equal to 50%), consistent with normal central venous pressure. Labs Result diagrams: 06/10/22 22:20 06/10/22 22:20 Labs: Laboratory Results - last 24 hr 06/10/22 06/10/22 06/10/22 22:20 22:20 22:20 WBC 9.70 RBC 5.59 Hgb 17.3 Hct 51.9 H MCV 93 MCH 30.9 MCHC 33.3 RDW 11.9 Plt Count 318 MPV 9.2 Immature Gran % 0.2 Neutrophils % 44.8 Lymphocytes % 41.3 Monocytes % 10.2 Eosinophils % 2.8 Basophils % 0.7 Nucleated RBC % 0.0 Absolute Neutrophils 4.34 Absolute Lymphocytes 4.01 H Absolute Monocytes 0.99 H Absolute Eosinophils 0.27 Absolute Basophils 0.07 PT 9.3 INR 0.9 APTT 23.6 Sodium 140 Potassium 3.7 Chloride 100 Carbon Dioxide 32.6 H Anion Gap 7.4 BUN 15 Creatinine 1.1 Est GFR (CKD-EPI 2020) 84.89 Glucose 104 Calcium 9.4 Total Bilirubin 0.4 AST 27 ALT 34 Alkaline Phosphatase 111 Troponin I < 50 NT-Pro-B Natriuret Pep 30 Total Protein 8.5 H Albumin 4.8 TSH 3.36 Ethyl Alcohol < 3.0 06/11/22 01:50 WBC RBC Hgb Hct MCV MCH MCHC RDW Plt Count MPV Immature Gran % Neutrophils % Lymphocytes % Monocytes % Eosinophils % Basophils % Nucleated RBC % Absolute Neutrophils Absolute Lymphocytes Absolute Monocytes Absolute Eosinophils Absolute Basophils PT INR APTT Sodium Potassium Chloride Carbon Dioxide Anion Gap BUN Creatinine Est GFR (CKD-EPI 2020) Glucose Calcium Total Bilirubin AST ALT Alkaline Phosphatase Troponin I < 50 NT-Pro-B Natriuret Pep Total Protein Albumin TSH Ethyl Alcohol Last Vital Signs Temp 36.2 C L 06/11/22 02:30 Pulse 87 06/11/22 05:28 Resp 15 06/11/22 05:40 BP 108/82 06/11/22 05:28 Pulse Ox 96 06/11/22 02:30 PAWSS Have you Been Recently Intoxicated or Drunk Within the Last 30 days?: Yes Have you Ever Experienced Previous Episodes of Alcohol Withdrawal?: No Have you ever Experienced Withdrawal Seizures?: No Have you ever Experienced Delirium Tremens(DT)s?: No Have you ever undergone Alcohol Rehabilitation Treatment (i.e, inpt ot outpatient treatment programs)?: No Have you ever Experienced Blackouts?: No Have you ever Combined Alcohol with other Downers within the last 90 days?: No Have you ever Combined Alcohol with any other Substance of Abuse during the last 90 days?: No Positive Blood Alcohol level on Presentation? [PCS.BAL]: No Evidence of Increased Autonomic Activity (i.e. HR>120, tremor, sweating, agitation, nausea)?: No Result: 1
[2022-06-11] MEDS: Enoxaparin 40 MG/0.4 ML SYR SC (06:46)
--- NOTE | 2022-06-11 07:23 | W.PM.PROGNOT ---
Date of Service Date of service: 06/11/22 Time of Service: 07:23 Assessment and Plan Assessment and plan (1) Atrial fibrillation with rapid ventricular response: Status: Acute Assessment and plan: Begin oral Cardizem and titrate IV diltiazem. Consult with cardiology regarding DCCV versus chemical cardioversion Versus referral to EP cardiology for ablation. Check echocardiogram to rule out structural heart disease. Obtain results of previous work-up from [facility]. Professional time spent interviewing and examining patient, discussion of goals of care with hospital team (care management, nursing and consulting professionals) was 30 minutes. Subjective Subjective Interval history since last seen: Patient presented w/ palpitations and his Apple watch indicated to him that he was in an irregular rhythm prompting him to present to the ED. See H&P and ED notes. Patient has had prior episodes of palpitations which was worked up in 2018 in which he had echocardiogram, alarm security or surveillance monitor and chemical stress test (all done through [facility] except an echo was done here after he presented to the ED). So far he has had no chest pain/pressure, still feels the palpitations but denies dyspnea. He is a regular drinker of about 5 beers per night. He occasional snores but he says that his has not noticed any apneic spells. He has never had workup for DIANA. He was given iv lopressor and iv diltiazem boluses and put on diltiazem drip but was not put on any oral AV bala blocking drugs. He was offered DCC by the ED provider but declined this. He has not been on anticoagulants and his [id number] score is 0 and therefore anticoagulation is not recommended. He is currently on diltiazem drip at 12.5 mg/hr w/ HR in the 120's. Diltiazem drip is being titrated and I have begun him on oral diltiazem. We will get follow up cardiology consult and echo in the morning. Exam Narrative Exam Narrative: Middle-aged white male who is alert and oriented person place and circumstance HEENT is unremarkable neck is neck supple nontender no JVD normal carotid pulses other than irregular rate and rhythm, no thyromegaly no adenopathy Lungs are clear to auscultation Heart is irregularly irregular slightly tachycardic no murmur rub Abdomen nontender Extremities without peripheral cyanosis or edema Objective Last Vital Signs Temp 36.2 C L 06/11/22 02:30 Pulse 87 06/11/22 05:28 Resp 15 06/11/22 05:40 BP 108/82 06/11/22 05:28 Pulse Ox 96 06/11/22 02:30 Laboratory Results - last 24 hr 06/10/22 06/10/22 06/10/22 22:20 22:20 22:20 WBC 9.70 RBC 5.59 Hgb 17.3 Hct 51.9 H MCV 93 MCH 30.9 MCHC 33.3 RDW 11.9 Plt Count 318 MPV 9.2 Immature Gran % 0.2 Neutrophils % 44.8 Lymphocytes % 41.3 Monocytes % 10.2 Eosinophils % 2.8 Basophils % 0.7 Nucleated RBC % 0.0 Absolute Neutrophils 4.34 Absolute Lymphocytes 4.01 H Absolute Monocytes 0.99 H Absolute Eosinophils 0.27 Absolute Basophils 0.07 PT 9.3 INR 0.9 APTT 23.6 Sodium 140 Potassium 3.7 Chloride 100 Carbon Dioxide 32.6 H Anion Gap 7.4 BUN 15 Creatinine 1.1 Est GFR (CKD-EPI 2020) 84.89 Glucose 104 Calcium 9.4 Total Bilirubin 0.4 AST 27 ALT 34 Alkaline Phosphatase 111 Troponin I < 50 NT-Pro-B Natriuret Pep 30 Total Protein 8.5 H Albumin 4.8 TSH 3.36 Ethyl Alcohol < 3.0 06/11/22 01:50 WBC RBC Hgb Hct MCV MCH MCHC RDW Plt Count MPV Immature Gran % Neutrophils % Lymphocytes % Monocytes % Eosinophils % Basophils % Nucleated RBC % Absolute Neutrophils Absolute Lymphocytes Absolute Monocytes Absolute Eosinophils Absolute Basophils PT INR APTT Sodium Potassium Chloride Carbon Dioxide Anion Gap BUN Creatinine Est GFR (CKD-EPI 2020) Glucose Calcium Total Bilirubin AST ALT Alkaline Phosphatase Troponin I < 50 NT-Pro-B Natriuret Pep Total Protein Albumin TSH Ethyl Alcohol PAWSS Have you Been Recently Intoxicated or Drunk Within the Last 30 days?: Yes Have you Ever Experienced Previous Episodes of Alcohol Withdrawal?: No Have you ever Experienced Withdrawal Seizures?: No Have you ever Experienced Delirium Tremens(DT)s?: No Have you ever undergone Alcohol Rehabilitation Treatment (i.e, inpt ot outpatient treatment programs)?: No Have you ever Experienced Blackouts?: No Have you ever Combined Alcohol with other Downers within the last 90 days?: No Have you ever Combined Alcohol with any other Substance of Abuse during the last 90 days?: No Positive Blood Alcohol level on Presentation? [PCS.BAL]: No Evidence of Increased Autonomic Activity (i.e. HR>120, tremor, sweating, agitation, nausea)?: No Result: 1
[2022-06-11 07:38] LABS: Calculated LDL 56 mg/dL (<100); Cholesterol 149 mg/dL (<200); HDL Cholesterol 78 mg/dL (40-60); Magnesium 1.7 mg/dL (1.8-2.4); Triglyceride 78 mg/dL (<150)
[2022-06-11 07:39] LABS: COVID-19 PCR Negative (Negative); Influenza A PCR Negative (Negative); Influenza B PCR Negative (Negative); RSV PCR Negative (Negative)
[2022-06-11 07:42] LABS: Source Nasopharynx
[2022-06-11] MEDS: dilTIAZem 60 MG TAB PO ×3 (09:08→19:53)
--- NOTE | 2022-06-11 10:19 | INITIAL_ITS ---
- If Service Date Differs Date of service: 06/11/22 Time of Service: 10:19 Care Management Initial Assess REASON FOR HOSPITALIZATION:: AFib with RVR PAST MEDICAL HISTORY/PAST SURGICAL HISTORY:: All Active Problems. Atrial fibrillation with rapid ventricular response (Acute). Medical History. Acne. Back pain with radiculopathy. Depression. Family history of thoracic aortic aneurysm. Fx lumbar vertebra-closed. Fx lumbar vertebra-closed. Left knee pain. Migraine (12/18/12). Mitral regurgitation. Nonsustained ventricular tachycardia. Paresthesia. Radiculopathy affecting upper extremity. Tricuspid regurgitation. Upper back pain. Surgical History. H/O arthroscopic knee surgery. 2xleft, 1xright. H/O wisdom tooth extraction PREVIOUS FUNCTIONAL STATUS/SOCIAL/FAMILY SUPPORTS:: Wai lives in [place] with his , Yu and their two children. 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 He is independent at baseline. CURRENT FUNCTIONAL STATUS:: Wai was resting when CM attempted to meet with him. His RN asked that he not be disturbed, as he had been up all night and was very tired. His RN stated that his and two children visited earlier. Per report, he will have an echo and cardio consult tomorrow. CM will continue to follow. ADVANCE DIRECTIVES:: Not on file. Has patient been provided with info about the portal/API?: Yes Did the patient sign up for the portal?: Yes (active) CODE STATUS:: Full Code INSURANCE COVERAGE / FINANCIAL ISSUES:: /[facility] CURRENT HOME/COMMUNITY SERVICES/EQUIPMENT:: None. PRIMARY CARE PHYSICIAN:: Irene Hood POTENTIAL DISCHARGE NEEDS:: Follow up appointments. PATIENT/FAMILY EDUCATION NEEDS:: Review discharge instructions and limitations, discussion of self care needs including ask me three. ANTICIPATED BARRIERS TO DISCHARGE:: None. TRANSPORTATION:: Via private vehicle by his spouse. PLAN:: Wai will return home once medically cleared. His will drive him home via private vehicle. He will follow up with his PCP and discharge plan of care. CM will continue to follow.
[2022-06-11] MEDS: Magnesium Oxide 400 MG TAB 800 MG PO (17:13)
--- NOTE | 2022-06-11 17:30 | RT.EKG_ITS ---
APPROVED REPORT Exam: Resting ECG Reason for Exam: coverts sinus Patient Location: I HR:77 bpm ECG Measurements Heart Rate 77 AXIS TN 159 P 19 QRSd 118 QRS -27 QT 364 T -1 QTc 412 Conclusion Sinus rhythm...normal P axis, V-rate 50- 99 Incomplete RBBB and LAFB...axis(240,-40), S>R II III aVF
--- NOTE | 2022-06-11 19:07 | NUR.NOTE ---
1835: Pt transferred to med/surg room 225 with all his personal belongings including his cell phone and network administrator and 3 bags of clothing. Pt walked from room 219 to room 225 without incident, gait is strong and steady. Pt denies chest pain, pt denies dizzyness. T 36.6, HR 78, BP 110/79, 02 sat 97%, RR 16. Telemetry in place. Handoff report given to [facility] med/vitreo retinal surgeon.
[2022-06-11] MEDS: Normal Saline Flush 10 ML SYR IVP (19:54)
[2022-06-12] VITALS: PULSE 79
[2022-06-12 03:34] VITALS: BP 104/66; PULSE 69; RESP 16; TEMP 36.7; O2SAT 96
[2022-06-12] MEDS: Enoxaparin 40 MG/0.4 ML SYR SC (06:27)
[2022-06-12 07:00] VITALS: PULSE 78
[2022-06-12 07:14] LABS: HCT 46.7 % (40.0-50.0); HGB 15.6 g/dL (13.5-17.5); MCH 30.5 pg (27.0-33.0); MCHC 33.4 % (32.0-36.0); MCV 91 fL (80-95); MPV 8.9 fL (8.0-11.0); Platelet Count 266 10^3/uL (130-400); RBC 5.12 10^6/uL (4.36-5.78); RDW 12.1 % (11.8-14.1); RDW-SD 40.5 fL; WBC 6.14 10^3/uL (4.4-10.8)
[2022-06-12 07:40] LABS: ALT 28 U/L (16-63); AST 18 U/L (15-37); Albumin 3.6 g/dL (3.4-5.0); Alkaline Phosphatase 68 U/L (46-116); Anion Gap 4.9 mmol/L (3-11); BUN 13 mg/dL (7-18); Bilirubin, Total 0.6 mg/dL (0.2-1.0); CO2 31.1 mmol/L (21.0-32.0); Calcium 8.8 mg/dL (8.5-10.1); Chloride 105 mmol/L (98-107); Estimated GFR 95.18 (mL/min/1.73m2); Glucose 97 mg/dL (74-106); Potassium 3.9 mmol/L (3.5-5.1); Sodium 141 mmol/L (136-145); Total Protein 6.6 g/dL (6.4-8.2)
[2022-06-12 07:41] VITALS: BP 119/83; PULSE 78; RESP 17; TEMP 36; O2SAT 96
[2022-06-12] MEDS: dilTIAZem 60 MG TAB PO (07:43)
--- NOTE | 2022-06-12 08:00 | DI.US_ITS ---
APPROVED REPORT EXAM: Comprehensive 2D, Doppler, and color-flow Echocardiogram Patient Location: In-Patient Room/Bed: 225 Box Loader: Tiana Hernandez RDCS (AE) Indications: A Fib, Evaluate LV function Other Information Study Quality: Adequate. Technically limited study due to bedside echo done. Conclusion Normal left ventricular wall thickness and chamber size. Estimated ejection fraction is 60 to 65%. Wall motion is normal Normal right ventricular size and systolic function Both atria are normal in size There is no structural or hemodynamically significant valvular disease Patient was in sinus rhythm during the study Wall motion Left Ventricle The left ventricle is normal size. The left ventricular systolic function is normal. The left ventric ular ejection fraction is within the normal range. There is normal left ventricular wall thickness. T here is normal LV segmental wall motion. There is no ventricular septal defect visualized. LVEF is 60 -65%. Right Ventricle Right ventricle is grossly normal in size. Right ventricular systolic function is grossly normal. Atria The left atrium size is normal. The right atrium size is normal. The interatrial septum is intact wit h no evidence for an atrial septal defect. Aortic Valve The aortic valve is normal in structure. Aortic valve is trileaflet. There is no aortic valvular sten osis. No aortic regurgitation is present. Mitral Valve The mitral valve is normal in structure. No evidence of mitral valve stenosis. Trace mitral regurgita tion. Tricuspid Valve The tricuspid valve is normal in structure. There is no tricuspid valve stenosis. Trace tricuspid reg urgitation. Unable to assess PA pressure. Pulmonic Valve The pulmonary valve is normal in structure. There is no pulmonic valvular stenosis. There is no pulmo esvin valvular regurgitation. Great Vessels The aortic root is normal in size. The ascending aorta is normal in size. Aortic arch is normal in ca liber. IVC is normal in size and collapses >50% with inspiration. Pericardium There is no pericardial effusion. 2D Dimensions IVSD d PLAX 0.93 cm M: 0.6-1.2 LV Vol A2C d MOD 102.9 mL LVPW d PLAX 0.91 cm M: 0.6 - 1.2 LV Vol A4C d MOD 112.4 mL LVID d PLAX 4.62 cm M: 4.2 - 5.8 LA vol/ BSA A4C s A-L 12.7 mL/m2 LVDs 2.95 cm M: 2.5 - 4.0 LA Area A4C s MOD 11.96 cm2 Ao Root d 3.33 cm M: 3.1 - 3.7 LV EF A4C MOD 59.8 % RA Area A4C 15.55 cm2 LV EF A2C MOD 60.8 % RA Vol/ BSA A4C s A-L 20.6 mL/m2 LV EF Biplane MOD 59.8 % Ao Asc Diam d 3.17 cm M: 2.6 - 3.4 SV 64.85 mL LV EF Teichholz 64.9 % SV Index 31.34 mL/m2 LVEF (Butler's) 59.77 % M: 52 - 72 LV Volume 80.46 mL M: 62 - 150 LV Volume Index 38.86 mL/m2 M: 34 - 74 LV Vol Biplane MOD 108.5 mL FS 35.40 % M-Mode TAPSE 2.33 cm (M/F) >1.7 LV Diastology MV E' medial 0.121 (>0.07 m/s) E/A Ratio 1.5 LV E/e MED 5.95 (<14) MV E Vmax 0.73 (0.4-1.3 m/s) MV E' lateral 0.119 (>0.1 m/s) MV A Vmax 0.50 (0.4-1.3 m/s) LV E/e LAT 6.05 (<14) MV E/A Ratio 1.34 MV E/E' medial 5.99 MV E/E' lateral 6.09 Aortic Valve LVOT Area 3.23 cm2 AoV Area Vmax 3.13 cm2 LVOT Vmax 0.99 m/s AoV Area/ BSA (Vmax) 1.51 cm2/m2 LVOT Mean Mando. 0.75 m/s NAM Mean Mando. 3.09 cm2 LVOT Peak Grad 3.9 mmHg NAM Mean Mando. Index 1.50 cm2/m2 LVOT Mean Grad 2.5 mmHg LVOT VTI 0.205 m LVOT Diam s 2.00 cm AoV Vmax 1.02 m/s Velocity Ratio 0.97 AoV Mean Mando. 0.78 m/s AoV Peak Grad 4.2 mmHg LVOT SV 66.28 mL AoV Mean Grad 2.6 mmHg AoV VTI 0.181 m AoV Area VTI 3.66 cm2 AoV Area/ BSA (VTI) 1.77 cm/m2 Mitral Valve MV DT 203 (160-240 msec) MV PHT 59 msec MV Area PHT 3.74 cm2 MV VTI 0.187 m MV Area VTI 3.55 (4.0-6.0 cm2) Pulmonary Valve PV Vmax 0.83 (0.5-1.5 m/s) RVOT Peak Gr. 1.45 mmHg PV Peak Grad 2.8 mmHg RVOT Mean Gr. 0.75 mmHg PV Mean Grad 1.5 mmHg RVOT VTI 0.119 m PV VTI 0.147 m RVOT Vmax 0.60 m/s
--- NOTE | 2022-06-12 08:42 | CCONE_ITS ---
Date of service: 06/12/22 Time of Service: 08:45 History of Present Illness Narrative: Is a 42-year-old man with a history of palpitations for which he was evaluated by cardiology at [facility] in 2019. Reportedly he did not tolerate metoprolol well because of worsening depression. Evaluation there included an echocardiogram which showed normal left ventricular function, normal chamber sizes, no valvular disease as well as a dobutamine stress echo which showed no evidence of ischemia. He presented in atrial fibrillation here and has converted to sinus rhythm [id number] score is 0 Patient was not interviewed or examined. He should be transition to long-acting diltiazem. Baby aspirin is reasonable but not truly effective for stroke prevention. He should have follow-up with electrophysiology PFS All Active Problems (Updated 06/11/22 @ 06:10 by Benitez Estevez) Atrial fibrillation with rapid ventricular response (Acute) Medical History (Updated 06/11/22 @ 06:10 by Benitez Estevez) Acne Back pain with radiculopathy Depression Family history of thoracic aortic aneurysm Fx lumbar vertebra-closed Fx lumbar vertebra-closed Left knee pain Migraine (12/18/12) Mitral regurgitation Nonsustained ventricular tachycardia Paresthesia Radiculopathy affecting upper extremity Tricuspid regurgitation Upper back pain Surgical History H/O arthroscopic knee surgery 2xleft, 1xright H/O wisdom tooth extraction Social History Smoking/Tobacco Use Status: Current every day Tobacco Type: smokeless tobacco Smokeless tobacco user: chewing tobacco Smoking risk assessment performed?: Yes Alcohol Intake: current Alcohol Intake frequency: a few times a week Alcohol type: beer Drug use: Never Substance use type: does not use Household members: spouse and children Housing: house Number of Children: 2 current occupation: law enforcement Current gender identity: male What is your relationship status?: Panel score (0-1 are the most socially isolated patients): 1 What type of physical activity do you participate in: none Seatbelt use: always Do you feel safe at home: Yes Do you feel safe in your relationship?: Yes Results Last Vital Signs Temp 36 C L 06/12/22 07:41 Pulse 78 06/12/22 07:41 Resp 17 06/12/22 07:41 BP 119/83 06/12/22 07:41 Pulse Ox 96 06/12/22 07:41 Labs Result diagrams: 06/12/22 06:55 06/12/22 06:55 Labs: Laboratory Results - last 24 hr 06/12/22 06/12/22 06:55 06:55 WBC 6.14 RBC 5.12 Hgb 15.6 Hct 46.7 MCV 91 MCH 30.5 MCHC 33.4 RDW 12.1 Plt Count 266 MPV 8.9 Sodium 141 Potassium 3.9 Chloride 105 Carbon Dioxide 31.1 Anion Gap 4.9 BUN 13 Creatinine 1.0 Est GFR (CKD-EPI 2020) 95.18 Glucose 97 Calcium 8.8 Magnesium 2.0 Total Bilirubin 0.6 AST 18 ALT 28 Alkaline Phosphatase 68 Total Protein 6.6 Albumin 3.6
[2022-06-12 11:28] VITALS: BP 110/68; PULSE 77; RESP 18; TEMP 36.4; O2SAT 95
--- NOTE | 2022-06-12 13:12 | DSE_ITS ---
Date of service: 06/12/22 Time of Service: 13:12 DS: Diagnosis Discharge Diagnosis (1) Atrial fibrillation with rapid ventricular response: Status: Acute Asessment and Plan: 42-year-old white male user of tobacco products and regular user of alcohol drinking up to 5 beers at night presented to the emergency department with complaints of palpitations and found by his apple watch to be in atrial fibr illation. This was confirmed when he arrived to emergency department. He was given a bolus of diltiazem and admitted to the intensive care unit on diltiazem drip. Patient converted to sinus rhythm was switched to short acting diltiazem 60 mg TID and upon discharge was switched to long-acting diltiazem 100 hemograms daily. His [id number] score is 0 and therefore anticoagulation was not indica shekhar. Cardiology consultation was requested with Dr. Giselle ruvalcaba who placed a note on the chart but did not interview or examine the patient. Recommendation was for long-acting diltiazem as the patient had been tried on metoprolol before but could not tolerate due to depression. Note patient had a previous work-up in 2018 for symptoms of palpitation at that time he had an echocardiogram stress test and cardiac event recorder. He never was diagnosed with atrial fibrillation during that work-up of palpitations. During this admission patient had negative troponin levels and had normal TSH and he had an echocardiogram that showed normal left ventricular size and function with an LVEF of 60 to 65% and normal right ventricular size and function. He had no hemodynamically significant valvular disease. Patient was discharged home with a prescription for diltiazem CD1 180 mg daily and he was advised to follow-up with EP cardiology services at [facility]. He was given outpatient appointment at [facility]. Patient was advised to limit his alcohol intake to less than 2 drinks per day and to refrain from nicotine use. Patient was given handout from [employer] discussing work-up and treatment of atrial fibrillation. Discharge Plan Disposition Patient Disposition: Home Condition: Good Discharge Details Reason For Visit: Atrial fibrillation with RVR Admit Date/Time: 06/11/22 00:05 Admit Provider: Benitez Estevez Attending Provider: Benitez Estevez Primary Care Provider: KUSHAL LUNDBERG Home Meds and New Rx's Prescriptions: New diltiazem HCl [Cartia XT] 180 mg capsule,extended release 24hr 180 mg PO DAILY Qty: 30 0RF Discharge Instructions Instructions: Diltiazem (By mouth), A-fib (Atrial Fibrillation) (DC) Additional Instructions: You were treated for an irregular heart rhythm called atrial fibrillation. Atrial fibrillation can be caused by a number of factors. I have given you a handout from [facility] discussing these factors and the treatment for atrial fibrillation (also called a-fib). One of the factors that pertains to your lifestyle is your consumption of alcohol. I would recommend that you limit your alcohol intake to less than 2 drinks per day. I am also recommending that your PCP set you up for a sleep study to rule out sleep apnea. You should also see an EP (electrophysiology) substitute school nurse (the electricians of cardiology) to discuss your workup and treatment of afib. Ischemic heart disease is also a major cause of afib. You have indicated that you have a family history of heart attack in your family but that you had a normal stress test in 2018. You should discuss w/ the substitute school nurse whether or not you should repeat the stress test. Usually coronary artery disease will present w/ symptoms of exertional chest pain/pressure or shortness of breath w/ activity the improves w/ rest, however some forms of coronary artery disease can present suddenly w/ a heart attack so discuss whether or not to pursue another stress test. Lastly we did check your thyroid function (over active thyroid is another cause for afib) and your thyroid was normal. You also have indicated that you chew tobacco. Nicotine can be a cause for fast heart beats as well as high blood pressure so it is recommended that you try to quit use of any nicotine. I did not put you on a blood thinner. Often people who have atrial fibrillation will go on an anticoagulant blood thinner to prevent strokes. However, I used a cardiology risk calculator to determine your risks for stroke from atrial fibrillation, this risk calculator is [id number] and your score is 0 and anticoagulation is not recommended. The factors that raise your risk for stroke include valvular heart disease, hypertension, congesitve heart failure, advanced age (over 65), diabetes mellitus, prior stroke or blood clots, vascular disease, female gender. Lastly I have ordered a cardiac event recorder to be placed on you to monitor y our heart rate and rhythm over the next two weeks to assess whether or not the medicine you have been prescribed (diltiazem) will keep your heart rate and rhythm controlled. [place] [place] - (patient needs cardiology referral to electrophysiology services) KUSHAL LUNDBERG RADIATOR TESTER [Primary Care Provider] - (follow up w/ PCP next week) Activity:: Activity as Tolerated Equipment/Supplies:: No Equipment Needed Diet:: Normal Diet Discharge Orders Discharge Orders: Discharge Order (Routine); Ordered 06/12/22 Ordered By: Jaya Timmons Ambulatory Orders: Cardiac Event Recorder (Routine) Timeframe: 1 Day Facility: [facility] - Location: Respiratory Therapy Ordered By: Jaya Anton DS: Summary Time Spent with Patient providing and/or coordinating discharge services: Greater than 30 minutes Specific discharge activities: Interview/exam of patient; review of discharge instructions, completion of prescriptions/discharge instructions; discussion w/ nursing and CM; documentation of hospital visit Status at Discharge Functional status at discharge: independent ambulation Overall status at discharge: patient is back to baseline Mental Status: mental status grossly normal Speech and Movement: speech and movement normal Mood: congruent mood Affect: normal affect Exam Narrative Exam Narrative: Wai seen in his chair he is alert and oriented per his place time circumstance Lungs are clear to auscultation Heart regular rate and rhythm no murmur rub or gallop Neck is supple nontender no thyromegaly Psych Mental Status: mental status grossly normal Speech and Movement: speech and movement normal Mood: congruent mood Affect: normal affect DS: Data Vitals/I&O Vitals and I&O: Vital Signs Temperature 36.4 C L 06/12/22 11:28 Temperature Source Tympanic 06/12/22 11:28 Pulse 77 06/12/22 11:28 Pulse Rhythm Regular 06/12/22 07:45 Pulse 73 06/11/22 16:20 Respiratory Rate 18 06/12/22 11:28 Respiratory Effort Non-Labored 06/12/22 07:45 Respiratory Depth Normal 06/12/22 07:45 Respiratory Pattern Normal 06/12/22 07:45 Blood Pressure 110/68 06/12/22 11:28 Blood Pressure Mean 78 06/11/22 15:53 Blood Pressure Position Sitting 06/11/22 10:00 Pulse Oximetry 95 06/12/22 11:28 Oxygen Delivery Method Room Air 06/12/22 11:28 Oxygen Flow Rate 0 06/12/22 11:28 Pain Level 0 06/12/22 11:28 Intake & Output 06/11/22 06/12/22 06/12/22 23:59 11:59 23:59 Intake Total 1118.333 / 2196.875 250 / 250 Output Total 1999 Balance -881.667 / -1303.125 -1700 / -1700 Intake: IV 18.333 / 1096.875 Oral 1100 / 1100 250 / 250 Output: Urine 1999 Other: Urine Color Yellow Yellow Urine Appearance Clear Clear Urine Odor Normal Normal Voiding Methods Toilet Toilet Data Completed and Pending Labs on day of discharge: Labs from last 24 hours 06/12/22 06/12/22 06:55 06:55 WBC 6.14 RBC 5.12 Hgb 15.6 Hct 46.7 MCV 91 MCH 30.5 MCHC 33.4 RDW 12.1 Plt Count 266 MPV 8.9 Sodium 141 Potassium 3.9 Chloride 105 Carbon Dioxide 31.1 Anion Gap 4.9 BUN 13 Creatinine 1.0 Est GFR (CKD-EPI 2020) 95.18 Glucose 97 Calcium 8.8 Magnesium 2.0 Total Bilirubin 0.6 AST 18 ALT 28 Alkaline Phosphatase 68 Total Protein 6.6 Albumin 3.6 PFSH All Active Problems Atrial fibrillation with rapid ventricular response (Acute) Medical History Acne Back pain with radiculopathy Depression Family history of thoracic aortic aneurysm Fx lumbar vertebra-closed Fx lumbar vertebra-closed Left knee pain Migraine (12/18/12) Mitral regurgitation Nonsustained ventricular tachycardia Paresthesia Radiculopathy affecting upper extremity Tricuspid regurgitation Upper back pain Surgical History H/O arthroscopic knee surgery 2xleft, 1xright H/O wisdom tooth extraction Social History Smoking/Tobacco Use Status: Current every day Tobacco Type: smokeless tobacco Smokeless tobacco user: chewing tobacco Smoking risk assessment performed?: Yes Alcohol Intake: current Alcohol Intake frequency: a few times a week Alcohol type: beer Drug use: Never Substance use type: does not use Household members: spouse and children Housing: house Number of Children: 2 current occupation: law enforcement Current gender identity: male What is your relationship status?: Panel score (0-1 are the most socially isolated patients): 1 What type of physical activity do you participate in: none Seatbelt use: always Do you feel safe at home: Yes Do you feel safe in your relationship?: Yes
[2022-06-12] MEDS: dilTIAZem CD 180 MG CAPCR PO (13:14)
--- NOTE | 2022-06-12 14:25 | PDOC.CMDIS ---
- If Service Date Differs Date of service: 06/12/22 Time of Service: 14:25 LACE Index Scoring Tool - Questions: Length of Stay (in days): 1 Acuity (Admit via E.D.?): Yes E.D. Visits: 2 - Answers: Total Score: 6 Risk of Readmission: Low Risk Care Management Discharge Reason for Hospitalization: AFib with RVR Discharge Plan: Wai returned home today with no new services. His drove him home via private vehicle. He will follow up with his PCP, Cardiology, and his discharge plan of care. He is happy to be going home. Patient/Family Education Needs: Review discharge instructions and limitations, discussion of self care needs including ask me three.
== END 2022-06-12 15:32 | disposition home or self-care (01) | DRG 310 ==
LOC: ER 22:29 → ICU 06-11 02:46 → MS 06-11 22:14
PROVIDERS: Admitting Provider Family Medicine; Emergency Provider Student in an Organized Health Care Education/Training Program; PCP Nurse Practitioner Family; Visit Provider Family Medicine
DX: I48.91 Unspecified atrial fibrillation (principal); F32.A Depression, unspecified; G43.909 Migraine, unspecified, not intractable, without status migrainosus; I08.1 Rheumatic disorders of both mitral and tricuspid valves; M54.12 Radiculopathy, cervical region; M54.89 Other dorsalgia; F17.210 Nicotine dependence, cigarettes, uncomplicated; I47.29 Other ventricular tachycardia
CPT/HCPCS: 36415; 80053; 80061; 85027; 87637; 93005; 96361; 96365; 96366; 96375; 96376; 99291; J1650; 80320; 83735; 83880; 84443; 84484; 85025; 85610; 85730; 93010; 93306; 99223; 99239; 99354

== ENCOUNTER 2022-06-12 14:33 | Outpatient (RCR) | payer BC, SELFPAY | END 2022-07-01 23:59 | disposition home or self-care (01) | LOC: RT 14:33 | PROVIDERS: PCP Nurse Practitioner Family; Visit Provider Internal Medicine | DX: I48.91 Unspecified atrial fibrillation (principal) | CPT/HCPCS: 93270 ==

== ENCOUNTER 2022-07-17 07:52 | Outpatient (CLI) | payer BC, SELFPAY ==
--- NOTE | 2022-07-17 10:20 | W.CARDEVENT ---
Date of service: 07/17/22 Time of Service: 10:20 Cardiac Event Recorder Referring Provider:: Jaya Anton Indications:: Paroxysmal atrial fibrillation Cardiac Event Note: This is a 30-day cardiac event monitor, ordered for atrial fibrillation Rhythm throughout was sinus with an average heart rate of 81. Minimum was 58, maximum 110 There were rare ventricular ectopic beats. There was one 5 beat run of nonsustained ventricular tachycardia There was no atrial fibrillation, no high-grade AV block, no pauses greater than 3 seconds Patient symptoms corresponded to sinus tachycardia rate 105
== END 2022-07-17 07:53 | disposition home or self-care (01) ==
LOC: CARDOPNVT 07:52
PROVIDERS: PCP Nurse Practitioner Family; Visit Provider Internal Medicine Cardiovascular Disease
DX: I49.3 Ventricular premature depolarization (principal); R00.0 Tachycardia, unspecified

== ENCOUNTER 2023-06-24 13:11 | Emergency (ER) | payer BC, SELFPAY ==
[2023-06-24 13:15] VITALS: BP 154/99; PULSE 88; RESP 18; TEMP 37.2; O2SAT 94
--- NOTE | 2023-06-24 13:21 | ED.GENADUL_ITS ---
Discharge Plan Disposition Patient Disposition: Home Condition: Improving Discharge Details Clinical Impression: Laceration of blood vessel of left index finger, initial encounter Primary Care Provider: KUSHAL LUNDBERG ED Provider: Blanche Lin Home Meds and New Rx's Prescriptions: No Action diltiazem HCl [Cartia XT] 180 mg capsule,extended release 24hr 180 mg PO DAILY Qty: 30 0RF Discharge Instructions Instructions: Finger Laceration (ED) Additional Instructions: 1. After a maximum of 2 days remove the splint and gently flex and extend the finger to prevent stiffening. 2. Suture removal in 7 days. If there are signs of infection such as redness, pus, fever, chills, red streaking return here earlier to evaluate for infection. 3. If you need to wash the wound you may do so with dilute hydrogen peroxide and tap water and 1-1 dilution. Discharge Data Discharge Date/Time-TO BE ENTERED AT DEPARTURE: 06/24/23 14:04 Discharge Physician: Blanche Lin Medical Decision Making This is a healthy 43-year-old male who presents with a laceration to the left index finger from a knife. He denies any foreign body sensation and there is no clinical evidence of a fracture. I do not see an indication for imaging. My plan is to perform a digital block and to close the laceration with simple interrupted sutures. We will immobilize him I do not see any indication for antibiotics at this time. His tetanus is up-to-date. Differential Diagnosis Differential Diagnosis: Laceration left index finger, doubt foreign body, doubt fracture Medical Records Medical records reviewed: Yes I reviewed the patient's medical records. HPI General Mode of arrival: ambulatory . Date/Time Provider Initiated Documentation: 06/24/23 13:21 . Limitations to Documentation: no limitations . Information obtained by: patient . HPI Narrative: Time seen was 1321 in the waiting room and then bed 10. The patient is a 43-year-old [id number] male who lacerated his left index finger on a knife. He was using to cut Styrofoam to cover for ice fishing. He has had previous lacerations to that finger but no significant surgeries or fractures. He is complaining of mild constant burning pain which is nonradiating. He denies any foreign body sensation or loss of function. He denies any numbness tingling distal to the wound. He has not taken any medications for the pain. The pain is aggravated by palpation. He has no history of immune compromise. His tetanus is up-to-date. Related Data Home Medications Medication Instructions Recorded Confirmed diltiazem HCl 180 mg 180 mg PO DAILY #30 caps 06/12/22 06/24/23 capsule,extended release 24 hr (Cartia XT) Previous Rx's Medication Instructions Recorded diltiazem HCl 180 mg 180 mg PO DAILY #30 caps 06/12/22 capsule,extended release 24 hr (Cartia XT) Allergies Allergy/AdvReac Type Severity Reaction Status Date / Time penicillin V Allergy Severe Unverified 06/24/23 13:17 Penicillins Allergy Severe Hives Unverified 06/24/23 13:17 General Stated Complaint: Laceration TRES: 4 Review of Systems Narrative: see hpi PFSH All Active Problems (Updated 06/24/23 @ 13:53 by Blanche Lin MD) Laceration of blood vessel of left index finger, initial encounter (Acute) Medical History Acne Back pain with radiculopathy Depression Family history of thoracic aortic aneurysm Fx lumbar vertebra-closed Fx lumbar vertebra-closed Left knee pain Migraine (12/18/12) Mitral regurgitation Nonsustained ventricular tachycardia Paresthesia Radiculopathy affecting upper extremity Tricuspid regurgitation Upper back pain Surgical History H/O wisdom tooth extraction H/O arthroscopic knee surgery 2xleft, 1xright Social History Smoking/Tobacco Use Status: Current every day Tobacco Type: smokeless tobacco Smokeless tobacco user: chewing tobacco Smoking risk assessment performed?: Yes Alcohol Intake: current Alcohol Intake frequency: a few times a week Alcohol type: beer Drug use: Never Substance use type: does not use Household members: spouse and children Housing: house Number of Children: 2 current occupation: law enforcement Current gender identity: male What is your relationship status?: Panel score (0-1 are the most socially isolated patients): 1 What type of physical activity do you participate in: none Seatbelt use: always Do you feel safe at home: Yes Do you feel safe in your relationship?: Yes Exam Narrative Exam Narrative: The patient is well-developed well-nourished male who is alert and oriented in no acute distress with a bandage and black duct tape over his left index finger. He is mildly hypertensive. He is not tachypneic, tachycardic or febrile. His room air O2 sat is 99%. He is alert and oriented GCS is 15. He is not clinically intoxicated Const General: cooperative, healthy appearing, comfortable, no acute distress, well developed, well groomed and well hydrated Nutritional Appearance: average body habitus and well nourished Orientation: alert, awake and oriented x3 HENMT Head: normal to inspection, normocephalic and atraumatic Ears: hearing grossly normal bilaterally and external ears normal General nose exam: external nose normal, nares normal and no nasal discharge Face and sinus: normal facial exam, sinuses nontender and face symmetric Mouth: oral mucosae normal, lip normal, tongue normal, oropharynx normal, moist mucous membranes and other (Normal phonation. The patient is handling secretions.) Throat: posterior oropharynx normal and uvula midline Eyes General: appearance normal, both eyes and all related structures Eyelids: eyelids normal Conjunctivae: conjunctivae normal Sclera: sclerae normal Cornea: corneas normal Pupils: PERRL EOM: EOM intact bilaterally and No nystagmus Neck Neck: normal visual inspection, full ROM, no lymphadenopathy, no meningeal signs, trachea midline and supple Lymphatic: no lymphadenopathy noted Resp Effort & Inspection: normal respiratory effort, able to speak in complete sentences, no audible wheezes, no nasal flaring, no respiratory distress, no retractions, no stridor, not tachypneic and no use of accessory muscles Cardio Jugular venous pressure: no JVD Palpation: normal PMI Rate: regular rate Rhythm: regular rhythm Heart Sounds: S1 normal, S2 normal, no gallops, no murmurs and no rubs Skin General skin exam: no rashes or lesions noted, turgor normal, no petechiae, no purpura and other (Skin is normal for ethnicity.) Lesions: no lesions Rashes: no rashes Other: His skin is warm and dry normal for ethnicity. There is a 2 cm laceration over the left index finger at the level of the middle phalanx. He is neurovascularly intact distal to the wound. Cap refills less than 2 seconds. His flexor and extensor tendons are intact. The wound is clean and dry although still small amount of bleeding. His skin is otherwise normal for ethnicity. Neuro General: patient alert, patient awake, patient oriented x3, moves all extremities, no meningeal signs, no focal motor deficits and CN's II-XI intact bilaterally Cranial Nerves: CN's II-XI intact bilaterally, PERRL, accommodation normal, EOM intact bilaterally, no nystagmus, facial strength normal, tongue midline, hearing normal and no nystagmus Cognition: normal cognition Speech: speech normal Gait: normal gait Motor: muscle tone normal throughout and strength 5/5 throughout Sensory Exam: no sensory deficits noted Extrem Other: Please see above. He is moving all of his extremities normally. There is no evidence of tendon dysfunction in the left index finger. There is a 2 cm laceration through the subcutaneous tissue on the radial aspect of the left index finger at the level of the mid phalanx. There is a small amount of bleeding from the wound. The wound margins are well-approximated there is no evidence of foreign body. There is no bony crepitus or deformity. He is neurovascularly intact distal to the wound. There are several well-healed lacerations proximal to the open laceration. Psych Appearance: grossly normal Affect: normal affect Attitude: cooperative Thought Process: normal Thought Content: normal Insight: insight good Judgment: judgment good Other: The patient appears to have capacity make medical decisions. Course Vital Signs Vital signs: Vital Signs Temperature 37.2 C 06/24/23 13:15 Pulse 88 06/24/23 13:15 Respiratory Rate 18 06/24/23 13:15 Blood Pressure 154/99 H 06/24/23 13:15 Pulse Oximetry 94 06/24/23 13:15 Temperature 37.2 C 06/24/23 13:15 Temperature Source Temporal Artery Scan 06/24/23 13:15 Pulse 88 06/24/23 13:15 Respiratory Rate 18 06/24/23 13:15 Respiratory Effort Normal, Non-Labored 06/24/23 13:19 Blood Pressure 154/99 H 06/24/23 13:15 Blood Pressure Position Sitting 06/24/23 13:15 Pulse Oximetry 94 06/24/23 13:15 Oxygen Delivery Method Room Air 06/24/23 13:15 Oxygen Flow Rate 0 06/24/23 13:15 Procedures Other Description: After verbal consent, the finger was anesthetized using a digital block with 1% plain lidocaine without epinephrine with good resulting distal anesthesia. The wound was prepped and draped in sterile fashion. It was irrigated with 100 mL of saline. The 2 cm wound was sutured with 3 simple interrupted 5-0 Prolene sutures. Steri-Strips were placed over the wound. He tolerated the procedure well a dry sterile dressing and finger splint are being placed by the nursing staff. PAWSS Have you Been Recently Intoxicated or Drunk Within the Last 30 days?: No Have you Ever Experienced Previous Episodes of Alcohol Withdrawal?: No Have you ever Experienced Withdrawal Seizures?: No Have you ever Experienced Delirium Tremens(DT)s?: No Have you ever undergone Alcohol Rehabilitation Treatment (i.e, inpt ot outpatient treatment programs)?: No Have you ever Experienced Blackouts?: No Have you ever Combined Alcohol with other Downers within the last 90 days?: No Have you ever Combined Alcohol with any other Substance of Abuse during the last 90 days?: No Positive Blood Alcohol level on Presentation? [PCS.BAL]: No Evidence of Increased Autonomic Activity (i.e. HR>120, tremor, sweating, agitation, nausea)?: No Result: 0
[2023-06-24 14:04] VITALS: BP 150/98; PULSE 86; RESP 18; O2SAT 99
== END 2023-06-24 14:04 | disposition home or self-care (01) ==
PROVIDERS: Emergency Provider Emergency Medicine Emergency Medical Services; PCP Nurse Practitioner Family
DX: S61.211A Laceration without foreign body of left index finger without damage to nail, initial encounter (principal); F17.220 Nicotine dependence, chewing tobacco, uncomplicated; W26.0XXA Contact with knife, initial encounter; Y93.89 Activity, other specified; Y92.89 Other specified places as the place of occurrence of the external cause
CPT/HCPCS: 12001; 99282

== ENCOUNTER 2023-10-05 08:40 | Day surgery (SDC) | payer BC, SELFPAY ==
--- NOTE | 2023-10-04 20:13 | PDOC.DSDIS_ITS ---
Date of service: 10/05/23 Time of Service: 10:42 Discharge Plan Disposition Patient Disposition: Home Condition: Good Discharge Details Reason For Visit: colon cancer screening Attending Provider: Makenzie Burger Primary Care Provider: KUSHAL LUNDBERG Home Meds and New Rx's Prescriptions: Continued clindamycin phosphate 1 % solution 1 applic topical DAILY diltiazem HCl [Cartia XT] 180 mg capsule,extended release 24hr 180 mg PO DAILY Qty: 30 0RF Discontinued bisacodyl [Dulcolax (bisacodyl)] 5 mg tablet,delayed release (DR/EC) 5 mg PO ONCE Qty: 4 0RF Rx Instructions: Take per colonoscopy instructions provided by ordering providers office polyethylene glycol 3350 17 gram/dose powder 17 g PO ONCE Qty: 238 0RF Rx Instructions: Take per colonoscopy instructions provided by ordering providers office Discharge Instructions Additional Instructions: DSU Colonoscopy Post-O p Instructions Instructions for Everyone who is given Anesthesia: For your safety, please do the following for the next twenty-four (24) hours: *Do Not operate a motor vehicle (car, truck, motorcycle, etc.) *Do Not drink alcoholic beverages or use any recreational drugs for the first 24 hours or while taking pain medications. The medications in your body may have a reaction that can be dangerous. *Do Not make any important decisions or sign any important papers. Findings: Large colon polyp Follow up: My office will send a letter in 2 to 3 weeks time with the results of the pathology and when we want you to repeat the colonoscopy. Probably somewhere between 3 to 5 years time. Of course, you should continue to have a yearly physical exam including a rectal exam. If you should ever notice any pain or difficulty having a bowel movement, blood in the stool, unexplained weight loss, or change in your bowel habits, please contact your health provider 1. No lifting over 20 pounds or strenuous activity for the first 24 hours after your procedure. After 24 hours there are no restrictions on your activity but you may feel fatigued for a few days. 2. After you arrive home you may have a light meal and return to your normal diet as you can tolerate it without feeling sick to your stomach. 3. You may have a bloated, gaseous feeling in your belly (abdomen) after a colonoscopy. Passing gas and belching will help. Walking or lying down on your left side with your knees flexed may relieve the discomfort. Call the office at [phone] (Office) or [phone] (Hospital) right away if you notice any of the following: a.Vomiting of blood or ?coffee ground stools?. b.Rectal bleeding 1Tbsp, blood clots or continuous bleeding. c.Severe belly (abdominal) pain. d.A hard distended belly (abdomen) and an inability to pass gas. 4. Please don?t expect to have a normal BM (bowel movement) for 2-3 days after your procedure. 5. If there are questions regarding the findings of your procedure, please contact your doctor 6. If you are unable to contact your doctor with a problem, contact the hospital at [phone]. 7. Continue all your regular medications unless directed otherwise. I understand the above instructions and have no questions. Signature of Patient or Adult Escort Name of Responsible Adult Escort Signature of Nurse Date/Time Activity:: see above Diet:: see above Discharge Orders Discharge Orders: Discharge Order (Routine); Ordered 10/05/23 Ordered By: Makenzie Burger DS: Diagnosis Discharge Diagnosis (1) Depression: (2) Tricuspid regurgitation: (3) Mitral regurgitation: (4) Nonsustained ventricular tachycardia: (5) Afib: (6) Migraine: (7) Tobacco chew use: (8) Screening for malignant neoplasm of colon performed: Status: Acute Asessment and Plan: The patient is seen and examined after their colonoscopy.? The patient has been able to pass gas.? They are not having abdominal pain.? They have been able to tolerate liquids and a snack.? They do not have any nausea or vomiting.? They are not having any chest pain or shortness of breath.??? They are not having any rectal bleeding. Their vital signs have been stable-see nursing notes. We discussed findings during their colonoscopy, and any biopsies that were done/polyps that were removed. The patient will be sent a letter with any biopsy results, and when to repeat the colonoscopy.-see discharge instructions. Patient was given explicit instructions to follow-up regarding colonoscopy-refer to discharge instructions.? We reviewed resumption of medications. Patient verbalized understanding and discharged in stable and satisfactory condition- See nursing notes. (9) Adenomatous colon polyp: Status: Acute
--- NOTE | 2023-10-04 20:16 | W.COLOREPORT ---
Date of service: 10/05/23 Time of Service: 10:20 Colonoscopy Report Date of procedure: 10/05/23 Pre-op diagnosis general: CRC screening Post-op diagnosis procedure note: other (Polyps) Surgeon: Makenzie Burger Anesthesia Type: General:No Airway Estimated blood loss (mL): 1 Pathology: other Complications: None Disposition: same day Prep: Miralax/Dulcolax Retraction Time: 23 Procedure Description: After informed consent was obtained the patient was taken to the procedure room and placed in a left decubitous position. Monitors were applied and a time out was done. The patients name, date of , procedure, allergies to medications and metal in their body was reviewed. The patient was then sedated. Once sedated and comfortable a rectal exam was done. External exam was normal. Internal exam revealed a normal sphincter tone and no palpable masses. The prostate-no palpable masses. The scope was then introduced and retrofelexed. No internal hemorrhoids were identified. The scope was then advanced to the cecum without difficulty. The TI and appendiceal orifice were identified. The scope was then slowly retracted over 23 minutes back into the rectum. There are no AVMs or diverticula visualized. There were 2 polyps that are removed today. There is a 2 cm polyp at 90 cm that is removed with a cold snare. The specimen is retrieved. 2 clips were placed over the defect. No bleeding is noted. There is a 5 mm flat polyp at 25 cm. This is removed with a cold biting forcep. All specimen is retrieved and no bleeding is noted. There are no diverticula or AVMs visualized today. the scope was removed and the patient was woken up and taken back to Same day surgery in stable condition. The patient tolerated the procedure well and there were no immediate complications. Follow up: The patient should follow up in 3 years, due to size, unless they develop changes in bowel habits or other new gastrointestinal complaints.
[2023-10-05 08:49] VITALS: BP 122/84; PULSE 90; RESP 18; TEMP 36.5; O2SAT 97
[2023-10-05] MEDS: Lactated Ringers 1,000 ML 80 ML IV (09:06)
--- NOTE | 2023-10-05 09:33 | W.ANESPRE ---
General Info Date of Service Date Performed: 10/05/23 Height: 5 ft 10 in Weight: 84.3 kg Body Mass Index (BMI): 26.6 Surgical Procedure: Operation Date: 10/05/23 09:50 Proposed Procedure Side Surgeon ben Burger, Meds Allergies and Home Medications Allergies Allergy/AdvReac Type Severity Reaction Status Date / Time penicillin V Allergy Severe Hives Verified 10/05/23 08:47 Penicillins Allergy Severe Hives Verified 10/05/23 08:47 Home Medication Medication Instructions Recorded diltiazem HCl 180 mg 180 mg PO DAILY #30 caps 06/12/22 capsule,extended release 24 hr (Cartia XT) clindamycin phosphate 1 % topical 1 applic topical DAILY 08/24/23 solution Current Visit Medications: Current Medications Generic Name Dose Route Start Last Admin Trade Name Freq PRN Reason Stop Dose Admin Hyoscyamine Sulfate 0.125 mg 10/05/23 02:03 Hyoscyamine 0.125 Mg Sl/Oral/Chew SL 11/04/23 02:02 DIRECTED PRN Ringer's Solution 1,000 mls @ 80 mls/hr 10/05/23 06:00 10/05/23 09:06 IV 10/05/23 23:59 80 mls/hr INFUSION PING Administration IV Miscellaneous Supplies 1 each 10/05/23 06:00 Iv Access IV 10/05/23 23:59 DIRECTED PING Ondansetron HCl 4 mg 10/05/23 02:03 Ondansetron 4 Mg/2 Ml Vial IVP 11/04/23 02:02 Q4H PRN PRN Nausea / Vomiting Sodium Chloride 0 ml 10/05/23 06:00 Normal Saline Flush 10 Ml Syr IV 10/05/23 23:59 PRN PRN Sodium Chloride 0 ml 10/05/23 06:00 Normal Saline 10 Ml Vial IJ 10/05/23 23:59 DIRECTED PRN Sterile Water 0 ml 10/05/23 06:00 Water,Injection,Sterile 10 Ml Vial IJ 10/05/23 23:59 DIRECTED PRN PFSH Active Problems Active Problems: Problem Status Onset Code Screening for malignant neoplasm of colon performed Z12.11 Medical History Medical History Afib with rvr Tobacco chew use Migraine (12/18/12) Fx lumbar vertebra-closed Fx lumbar vertebra-closed Family history of thoracic aortic aneurysm Acne Paresthesia Left knee pain Depression Mitral regurgitation Tricuspid regurgitation Nonsustained ventricular tachycardia Upper back pain Back pain with radiculopathy Radiculopathy affecting upper extremity Surgical History Surgical History H/O wisdom tooth extraction H/O arthroscopic knee surgery 2xleft, 1xright Tobacco Smoking/Tobacco Use Status: Current every day Tobacco Type: smokeless tobacco Smokeless tobacco user: chewing tobacco Alcohol Alcohol Intake: current Alcohol intake frequency: 3 or more drinks per day Alcohol type: beer Substance Use Substance use: Never Substance use type: does not use Vital Signs and Lab Results Vital Signs Most Recent Vital Signs in EMR: Most Recent Vital Signs Temp Pulse Resp BP Pulse Ox 36.5 C 90 18 122/84 97 10/05/23 08:49 10/05/23 08:49 10/05/23 08:49 10/05/23 08:49 10/05/23 08:49 Lab Results Blood Type / Crossmatch: No Data to Display Complete Blood Count: No Data to Display Complete Metabolic Panel: No Data to Display Liver Function Panel: No Data to Display Coagulation Panel: No Data to Display Cardiac Panel: No Data to Display Arterial Blood Gas: No Data to Display Venous Blood Gas: No Data to Display Pancreas Panel: No Data to Display Thyroid Panel: No Data to Display Infectious Disease: No Data to Display Blood Cultures: No Data to Display Toxicology Panel: No Data to Display Imaging and Studies Imaging and Studies Study information below may be from another EMR and interpreted by another provider. Please see original notes in EMR for more complete details. EKG Summary: Conclusion Sinus rhythm...normal P axis, V-rate 50- 99 Incomplete RBBB and LAFB...axis(240,-40), S>R II III aVF 06/11/22 Echocardiogram Summary: Conclusion Normal left ventricular wall thickness and chamber size. Estimated ejection fraction is 60 to 65%. Wall motion is normal Normal right ventricular size and systolic function Both atria are normal in size There is no structural or hemodynamically significant valvular disease Patient was in sinus rhythm during the study 06/12/22 Anesthesia Assessment and Plan Anesthesia History Personal History: No History of Anesthesia Complications Family History: No Family History of Anesthesia Complications Exercise Tolerance Exercise Tolerance: Metabolic Equivalents>4 Pertinent Negatives Pertinent Negatives: No Symptoms of GERD, No Major Cardiovascular Symptoms or Complaints, No Major Pulmonary Symptoms or Complaints and No History of CVA/TIA Cardiac & Pulmonary Exam Cardiac Exam: Normal S1/S2 Heart Sounds Pulmonary Exam: Clear Bilateral Breath Sounds Implantable Cardiac Device Does patient have a Pacemaker or an ICD?: No Airway Exam Known Difficult Airway: No Mallampati Class: 1 Mouth Opening: Normal (> 3cm) Thyromental Distance: Greater than 3 cm Neck Range of Motion: Full ROM Neck Circumference: Normal Teeth Condition: Normal Dentition ASA Classification ASA Score: ASA 2 Emergency Case?: No NPO Status NPO Status: NPO Clears >2 hours, Solids >8 hours Anesthesia Plan Resuscitation Status: Full Code Anesthesia Technique: General Anesthesia Airway Planned: Natural Airway Monitors Used: Standard Monitors
[2023-10-05 09:38] VITALS: BMI 26.6
--- NOTE | 2023-10-05 09:58 | BOWEL_PTH ---
PATIENT: Wai Esquivel LOC: [facility] U#:[id number] AGE/SX: 43/M ROOM: RE10/05/[address]: Makenzie Burger : 1980 BED: DIS: 10/05/2023 SPEC #: [id number] RECD: 10/05/23 18:34 STATUS: ISHA REQ #: [id number] RAS: 10/05/23 09:[address]: Makenzie Burger DEPT: Surgical Specimen RECD BY: Camelia Lehman ENTERED: 10/05/23 18:35 SP TYPE: Bowel OTHR DR: UKSHAL LUNDBERG, WA[employer] Tissues: 1 - BIOPSY BOWEL 2 - BIOPSY BOWEL Procedures: GROSS AND MICRO LEVEL 4 Comments: [id number]
[2023-10-05 10:21] VITALS: BP 108/78; PULSE 88; RESP 16; O2SAT 98
--- NOTE | 2023-10-05 11:01 | W.ANESPOSTOP ---
Postoperative Evaluation Date, Time and Location Date Performed: 10/05/23 Time Performed: 10:31 Patient Location: Day Surgery Unit Vital Signs Most Recent Imported Vital Signs: Most Recent Vital Signs Temp Pulse Resp BP Pulse Ox 36.5 C 88 16 108/78 98 10/05/23 08:49 10/05/23 10:21 10/05/23 10:21 10/05/23 10:21 10/05/23 10:21 Pain Score Most Recent Pain Score: Most Recent Pain Score Pain Level 0 10/05/23 10:21 Assessment Mental Status: Awake (Alert & Oriented to Patient Baseline) Airway and Respiratory Function: Patent airway with normal (patient baseline) respiratory exam Cardiovascular Function: Hemodynamically Stable Hydration Status: Adequately Hydrated Nausea & Vomiting: No Nausea or Vomiting Pain: Pt. Denies Any Pain Peripheral Nerve Block: Patient did not receive a nerve block
[2023-10-05 11:07] VITALS: BP 131/95; PULSE 62; RESP 16; TEMP 36.5; O2SAT 100
== END 2023-10-05 11:54 | disposition home or self-care (01) ==
LOC: SUR 08:40
PROVIDERS: PCP Nurse Practitioner Family; Visit Provider Surgery
PROC: 0DJD8ZZ Inspection of Lower Intestinal Tract, Via Natural or Artificial Opening Endoscopic (ICD-10-PCS; CPT 45378; principal; 2023-10-05 09:45)
DX: Z12.11 Encounter for screening for malignant neoplasm of colon; D12.3 Benign neoplasm of transverse colon; Z72.0 Tobacco use
CPT/HCPCS: 45385; 45380; 88305; J2001; J2405; J2704